=== PATIENT | male | born 1990 | race African-American/Black ===

== ENCOUNTER 2022-07-02 15:53 | Emergency (ER) | payer OTHER, SELFPAY ==
[2022-07-02] MEDS ORDERED: Acetaminophen 325 MG Suppository ONE (17:23)
[2022-07-02] MEDS ORDERED: Acetaminophen 325 MG TAB ONE (17:24)
== END 2022-07-02 19:10 | disposition home or self-care (01) ==
LOC: ERS 15:53
DX: M25.561 Pain in right knee (principal); M25.562 Pain in left knee; F17.210 Nicotine dependence, cigarettes, uncomplicated; W01.198A Fall on same level from slipping, tripping and stumbling with subsequent striking against other object, initial encounter

== ENCOUNTER 2022-10-07 11:30 | Emergency (ER) | payer SELFPAY | END 2022-10-07 14:21 | disposition home or self-care (01) | LOC: ERS 11:30 | DX: S90.31XA Contusion of right foot, initial encounter (principal); F17.210 Nicotine dependence, cigarettes, uncomplicated; W22.8XXA Striking against or struck by other objects, initial encounter ==

== ENCOUNTER 2023-03-04 14:53 | Inpatient (IN) | payer OTHER, MEDICAID ==
[~2023-03-04 14:53] MED LIST: Iopamidol-370 76% 500 ML MDV (1 ML CHARGE) ONE
[2023-03-04] MEDS ORDERED: EPINEPHrine 1 MG/10 ML Abboject SYRINGE ONE (15:00)
[2023-03-04] MEDS ORDERED: Insulin Regular 300 UNITS/3 ML VIAL SC PRN (15:15)
[2023-03-04] MEDS ORDERED: fentaNYL 50 mcg/mL 1 mL Vial ONE (15:15)
[2023-03-04] MEDS ORDERED: Dextrose 5% in Water 1,000 ML IV PRN (15:15)
[2023-03-04] MEDS ORDERED: Glucagon 1 MG/ML KIT IM PRN (15:15)
[2023-03-04] MEDS ORDERED: Dextrose 50% Abboject 50 ML SYRINGE SLOW IVP PRN (15:15)
[2023-03-04 15:17] LABS: #Basophils 0.1 thou/uL (0.0-0.2); #Eosinphils 0.1 thou/uL (0.0-0.7); #Monocytes 0.7 thou/uL (0.11-0.59); #Neutrophils 8.3 thou/uL (1.40-6.50); %Basophils 0.5 % (0.0-1.0); %Eosinophils 0.8 % (0.0-10.0); %Lymphocytes 8.7 % (21.0-51.0); %Monocytes 7.2 % (0.0-10.0); Hematocrit 33.2 % (42.0-52.0); Hemoglobin 11.1 g/dL (14.0-18.0); Mean Corpuscular HGB CONC 33.4 g/dL (32.0-36.0); Mean Corpuscular Hemoglobin 33.9 pg (27.0-31.0); Mean Corpuscular Volume 101.5 fl (78.0-98.0); Mean Platelet Volume 10.2 fL (7.4-10.4); RBC Distribution Width 14.8 % (11.5-14.5); Red Blood Cell (RBC) Count 3.27 mill/uL (4.70-6.10); White Blood Cell (WBC) Count 10.1 10x3/uL (4.8-10.8)
[2023-03-04] MEDS ORDERED: FENTANYL 500 MCG/10 ML VIAL 2,000 MCG in Sodium Chloride 0.9% 60 ML IV PRN (15:18)
[2023-03-04 15:28] LABS: Platelet Count 135 10x3/uL (130-400)
[2023-03-04] MEDS ORDERED: DISCONTINUE PREVIOUS NARCOTIC PAIN MEDICATIONS AND BENZODIAZEPINES FS SCH (15:30)
[2023-03-04] MEDS ORDERED: Fentanyl BOLUS 250 ML IVPB PRN ×2 (15:30)
[2023-03-04] MEDS ORDERED: Propofol BOLUS 1,000 MG/100 ML VIAL IV PRN (15:30)
[2023-03-04] MEDS ORDERED: Dexmedetomidine In 0.9 % NaCl 100 ML IVPB SCH (15:30)
[2023-03-04] MEDS ORDERED: Fentanyl CADD 100 ML IV SCH (15:30)
[2023-03-04] MEDS ORDERED: Morphine 2 MG/ML VIAL SLOW IVP PRN (15:30)
[2023-03-04] MEDS ORDERED: Dexmedetomidine 400 MCG, Admixture Fee 1 EACH in Sodium Chloride 0.9% 96 ML IVPB SCH (15:30)
[2023-03-04 15:38] LABS: Actual Bicarbonate (HCO3a) 17.5 mEq/L (22-28); Analyzer IN Cardio ER; Base Excess (BEa) -5.9 mEq/L (-2.0 to +3.0); CO2 Tension 28.1 mmHg (35.0-45.0); Calcium, Ionized (arterial) 1.02 mmol/L (1.12-1.30); Hematocrit-ABG 33 % (42.0-52.0); Hemoglobin (Hb) 11.2 g/dL (14.0-18.0); Potassium - ABG Lab 3.94 mmol/L (3.70-5.30); pH, Arterial 7.413 (7.35-7.45)
[2023-03-04 15:41] LABS: ALT (SGPT) 13 U/L (8-55); AST (SGOT) 28 U/L (5-34); Albumin 3.5 g/dL (3.5-5.0); Alkaline Phosphatase 61 U/L (40-110); Anion Gap 15 mmol/L (10-20); BUN (Urea Nitrogen) 8 mg/dL (8.9-20.6); Bilirubin, Total 0.5 mg/dL (0.2-1.2); Calc. Creatinine Clearance 0 mL/min (70-130); Calcium 7.1 mg/dL (7.8-10.44); Carbon Dioxide 19 mmol/L (22-29); Chloride 113 mmol/L (98-107); Estimated GFR 108; Globulin 1.6 g/dL (2.4-3.5); Glucose 101 mg/dL (70-105); Potassium 4.2 mmol/L (3.5-5.1); Protein, Total 5.1 g/dL (6.0-8.3); Sodium 143 mmol/L (136-145)
[2023-03-04] MEDS ORDERED: Propofol 1,000 MG/100 ML VIAL IV PRN (15:47)
[2023-03-04 15:54] LABS: Puncture Site RBA
[2023-03-04 16:10] LABS: Bacteria/HPF None Seen HPF (None Seen); Bilirubin Negative (Negative); Blood, Urine 2+ (Negative); CAUTI Indications for Culture Alt mental st,lethar; Clarity Clear (Clear); Glucose, Urine (Dipstick) Normal (Negative); Ketone, Urine Negative (Negative); Leukocyte Negative Leu/uL (Negative); Nitrite Negative (Negative); Protein, Urine (Dipstick) 30 mg/dL (Neg-Trace); RBC/HPF 0-3 HPF (0-3); Specific Gravity, Urine 1.033 (1.002-1.036); Squamous Epithelial 0-3 HPF (0-3); Urobilinogen Normal mg/dL (Less than 2); WBC/HPF 0-3 HPF (0-3); pH, Urine 6.5 (5.0-9.0)
[2023-03-04] MEDS ORDERED: Calcium Chloride 1 GM/10 ML Abboject SYRINGE IVP SCH (16:15)
[2023-03-04 16:18] LABS: Urine Culture Reflex No No
[2023-03-04] MEDS: Sodium Chloride 0.9% 1,000 ML IV SCH ×2 (17:08→21:49)
[2023-03-04 17:41] LABS: Amphetamine Not Detected (NotDetected); Barbiturates Screen Not Detected (NotDetected); Benzodiazepine Screen Not Detected (NotDetected); Cocaine Metabolite Screen Not Detected (NotDetected); Methadone Not Detected (NotDetected); Methamphetamine Not Detected (NotDetected); Opiate Screen Not Detected (NotDetected); Oxycodone Screen Not Detected (NotDetected); Phencyclidine (PCP) Not Detected (NotDetected); THC/Cannabinoid Screen Detected (NotDetected); Tricyclic Screen Not Detected (NotDetected)
[2023-03-04 18:13] LABS: INR-International Normal Ratio 1.1; Prothrombin Time 15.1 sec (12.0-14.7)
[2023-03-04 18:14] LABS: PTT 26.3 sec (22.9-36.1)
[2023-03-04] MEDS ORDERED: DOBUTamine 500 mg/250 ml 250 ML IVPB SCH (18:15)
[2023-03-04] MEDS ORDERED: Atropine Sulfate 1 mg/10 ml Syringe IVP SCH ×2 (18:15)
[2023-03-04 18:19] LABS: Lactic Acid 2.7 mmol/L (0.5-2.2)
[2023-03-04] MEDS ORDERED: NOREPINEPHRINE 8 MG/250 ML-D5W 250 ML IVPB SCH (18:30)
[2023-03-04 18:54] LABS: Troponin I Less than 0.010 ng/mL (< 0.028)
[2023-03-04] MEDS: Ipratropium/Albuterol 3 ML NEB NEB SCH (19:27)
[2023-03-04] MEDS: DOPamine 400 MG/D5W 250 ML 250 ML IVPB SCH (21:32)
[2023-03-04] MEDS: Famotidine/PF 20 mg/2ml Vial SLOW IVP SCH (21:54)
[2023-03-04] MEDS: Acetaminophen 650 MG Suppository PR PRN (22:22)
[2023-03-05] MEDS: Lorazepam 2 MG/ML VIAL SLOW IVP PRN ×7 (01:36→21:08)
[2023-03-05] MEDS: Acetaminophen 650 MG Suppository PR PRN (02:10)
[2023-03-05] MEDS: Sodium Chloride 0.9% 1,000 ML IV SCH ×2 (05:29→12:23)
[2023-03-05 05:56] LABS: #Basophils 0.1 thou/uL (0.0-0.2); #Eosinphils 0.1 thou/uL (0.0-0.7); #Monocytes 1.3 thou/uL (0.11-0.59); #Neutrophils 11.2 thou/uL (1.40-6.50); %Basophils 0.4 % (0.0-1.0); %Eosinophils 0.4 % (0.0-10.0); %Lymphocytes 8.3 % (21.0-51.0); %Monocytes 9.3 % (0.0-10.0); %Neutrophils 81.3 % (42.0-75.0); Hemoglobin 12.9 g/dL (14.0-18.0); Mean Corpuscular HGB CONC 33.9 g/dL (32.0-36.0); Mean Corpuscular Hemoglobin 33.9 pg (27.0-31.0); Mean Platelet Volume 10.3 fL (7.4-10.4); Platelet Count 142 10x3/uL (130-400); White Blood Cell (WBC) Count 13.7 10x3/uL (4.8-10.8)
[2023-03-05 06:29] LABS: ALT (SGPT) 17 U/L (8-55); AST (SGOT) 29 U/L (5-34); Albumin 4.4 g/dL (3.5-5.0); Alkaline Phosphatase 77 U/L (40-110); Anion Gap 13 mmol/L (10-20); BUN (Urea Nitrogen) 8 mg/dL (8.9-20.6); Bilirubin, Total 1.6 mg/dL (0.2-1.2); Calc. Creatinine Clearance 102 mL/min (70-130); Calcium 9.3 mg/dL (7.8-10.44); Carbon Dioxide 22 mmol/L (22-29); Chloride 109 mmol/L (98-107); Estimated GFR 119; Globulin 2.1 g/dL (2.4-3.5); Glucose 83 mg/dL (70-105); Magnesium 1.4 mg/dL (1.6-2.6); Potassium 3.8 mmol/L (3.5-5.1); Protein, Total 6.5 g/dL (6.0-8.3); Sodium 140 mmol/L (136-145)
[2023-03-05] MEDS: Ipratropium/Albuterol 3 ML NEB NEB SCH ×3 (07:05→19:40)
[2023-03-05 07:30] LABS: INR-International Normal Ratio 1.1; PTT 30.7 sec (22.9-36.1); Prothrombin Time 14.8 sec (12.0-14.7)
[2023-03-05] MEDS: Famotidine/PF 20 mg/2ml Vial SLOW IVP SCH ×2 (07:59→21:08)
[2023-03-05] MEDS ORDERED: Magnesium 2 GM/50 ML(in water) 2 GM in Premix 1 BAG IVPB SCH (08:15)
[2023-03-05] MEDS ORDERED: Rocuronium Bromide 50 MG/5 ML VIAL IVP SCH (09:15)
[2023-03-05] MEDS ORDERED: Polyethylene Glycol 3350 17 GM Packet PO PRN (10:55)
[2023-03-05] MEDS ORDERED: Senokot S 8.6-50 MG TAB PO PRN (10:55)
[2023-03-05] MEDS ORDERED: Bisacodyl 5 MG TAB PO PRN (10:56)
[2023-03-05] MEDS: Fentanyl CADD 100 ML IV SCH (11:15)
[2023-03-05] MEDS: Propofol 1,000 MG/100 ML VIAL IV PRN (15:31)
[2023-03-06] MEDS: Acetaminophen 325 MG TAB PER TUBE PRN ×4 (00:51→20:12)
[2023-03-06] MEDS: Lorazepam 2 MG/ML VIAL SLOW IVP PRN ×3 (00:59→06:21)
[2023-03-06] MEDS: Sodium Chloride 0.9% 1,000 ML IV SCH ×3 (01:19→20:11)
[2023-03-06] MEDS ORDERED: EPINEPHrine 1 MG/10 ML Abboject SYRINGE ONE ×2 (03:32→08:42)
[2023-03-06 03:49] LABS: #Basophils 0.1 thou/uL (0.0-0.2); #Eosinphils 0.1 thou/uL (0.0-0.7); #Monocytes 1.3 thou/uL (0.11-0.59); #Neutrophils 10.8 thou/uL (1.40-6.50); %Basophils 0.3 % (0.0-1.0); %Eosinophils 0.7 % (0.0-10.0); %Lymphocytes 15.4 % (21.0-51.0); %Monocytes 8.6 % (0.0-10.0); %Neutrophils 74.7 % (42.0-75.0); Hemoglobin 12.5 g/dL (14.0-18.0); Mean Corpuscular HGB CONC 33.8 g/dL (32.0-36.0); Mean Corpuscular Hemoglobin 33.9 pg (27.0-31.0); Mean Corpuscular Volume 100.3 fl (78.0-98.0); Mean Platelet Volume 10.1 fL (7.4-10.4); Platelet Count 126 10x3/uL (130-400); RBC Distribution Width 14.9 % (11.5-14.5); Red Blood Cell (RBC) Count 3.69 mill/uL (4.70-6.10); White Blood Cell (WBC) Count 14.5 10x3/uL (4.8-10.8)
[2023-03-06 03:53] LABS: Actual Bicarbonate (HCO3a) 21.1 mEq/L (22-28); Base Excess (BEa) -5.6 mEq/L (-2.0 to +3.0); Carboxyhemoglobin (COHb) 0.3 gm% (0.0-3.0); Hematocrit-ABG 39 % (42.0-52.0); Hemoglobin (Hb) 13.3 g/dL (14.0-18.0); O2 Tension (PaO2), arterial 362.9 mmHg (80.0-100.0); Potassium - ABG Lab 3.35 mmol/L (3.70-5.30)
[2023-03-06 04:13] LABS: Anion Gap 15 mmol/L (10-20); BUN (Urea Nitrogen) 9 mg/dL (8.9-20.6); Calc. Creatinine Clearance 106 mL/min (70-130); Calcium 8.2 mg/dL (7.8-10.44); Carbon Dioxide 20 mmol/L (22-29); Chloride 108 mmol/L (98-107); Estimated GFR 120; Glucose 100 mg/dL (70-105); Magnesium 2.3 mg/dL (1.6-2.6); Phosphorus 2.9 mg/dL (2.3-4.7); Potassium 3.8 mmol/L (3.5-5.1); Sodium 139 mmol/L (136-145)
[2023-03-06 04:20] LABS: Lactic Acid 1.5 mmol/L (0.5-2.2)
[2023-03-06 04:23] LABS: Troponin I Less than 0.010 ng/mL (< 0.028)
[2023-03-06] MEDS: Ipratropium/Albuterol 3 ML NEB NEB SCH ×3 (07:01→18:01)
[2023-03-06] MEDS: Fentanyl CADD 100 ML IV SCH (07:27)
[2023-03-06] MEDS ORDERED: Piperacillin/Tazobactam 3.375 GM in Sodium Chloride 0.9% 100 ML IVPB SCH (08:15)
[2023-03-06] MEDS: DOPamine 400 MG/D5W 250 ML 250 ML IVPB SCH (09:29)
[2023-03-06] MEDS: Famotidine/PF 20 mg/2ml Vial SLOW IVP SCH ×2 (09:29→20:12)
[2023-03-06] MEDS ORDERED: Iopamidol-370 76% 500 ML MDV (1 ML CHARGE) ONE (12:54)
[2023-03-06] MEDS: Piperacillin/Tazobactam 3.375 GM in Sodium Chloride 0.9% 100 ML IVPB SCH ×2 (13:02→20:12)
[2023-03-07] MEDS: Acetaminophen 325 MG TAB PER TUBE PRN ×5 (00:18→18:59)
[2023-03-07] MEDS: DOPamine 400 MG/D5W 250 ML 250 ML IVPB SCH ×2 (01:38→14:34)
[2023-03-07] MEDS: Fentanyl CADD 100 ML IV SCH ×2 (01:39→18:33)
[2023-03-07] MEDS: Piperacillin/Tazobactam 3.375 GM in Sodium Chloride 0.9% 100 ML IVPB SCH ×3 (04:30→21:05)
[2023-03-07] MEDS: Sodium Chloride 0.9% 1,000 ML IV SCH ×2 (05:18→14:36)
[2023-03-07 06:25] LABS: Hematocrit 37.9 % (42.0-52.0); Hemoglobin 12.9 g/dL (14.0-18.0); Mean Corpuscular Hemoglobin 33.6 pg (27.0-31.0); Mean Corpuscular Volume 98.7 fl (78.0-98.0); Mean Platelet Volume 10.9 fL (7.4-10.4); Platelet Count 122 10x3/uL (130-400); RBC Distribution Width 14.6 % (11.5-14.5); Red Blood Cell (RBC) Count 3.84 mill/uL (4.70-6.10); White Blood Cell (WBC) Count 11.8 10x3/uL (4.8-10.8)
[2023-03-07] MEDS: Ipratropium/Albuterol 3 ML NEB NEB SCH ×3 (06:32→18:14)
[2023-03-07 06:35] LABS: Delete Auto Diff?? YES; Manual Diff?? YES
[2023-03-07 07:01] LABS: Anisocytosis SLIGHT = 6-15 cells HPF (0-5); Band 30 % (5-11); Burr Cells SLIGHT = 2-5 cells HPF (0-1); CellaVision Operator ID lab.sh2; Large Platelets 4.9 % (0-5); Lymphocytes 10 % (21-51); Macrocytosis SLIGHT = 6-15 cells HPF (0-5); Monocytes 10 % (0-10); Neutrophil 51 % (42-75); Ovalocytes MODERATE= 6-15 cells HPF (0-1); Platelet Adequacy Comment Platelets Decreased; Polychromasia SLIGHT = 2-3 cells HPF (0-2); Smudge Cells 3.9 %; Total Cell Count 103; Vacuoles SLIGHT
[2023-03-07 07:17] LABS: Anion Gap 13 mmol/L (10-20); BUN (Urea Nitrogen) 9 mg/dL (8.9-20.6); Calc. Creatinine Clearance 120 mL/min (70-130); Calcium 8.3 mg/dL (7.8-10.44); Carbon Dioxide 22 mmol/L (22-29); Chloride 106 mmol/L (98-107); Estimated GFR 125; Glucose 100 mg/dL (70-105); Magnesium 1.8 mg/dL (1.6-2.6); Phosphorus 2.4 mg/dL (2.3-4.7); Potassium 4.1 mmol/L (3.5-5.1); Sodium 137 mmol/L (136-145)
[2023-03-07] MEDS: Propofol 1,000 MG/100 ML VIAL IV PRN ×2 (08:35→16:07)
[2023-03-07] MEDS: Lorazepam 2 MG/ML VIAL SLOW IVP PRN ×2 (11:32→14:44)
[2023-03-07] MEDS: Famotidine/PF 20 mg/2ml Vial SLOW IVP SCH ×2 (11:40→20:33)
[2023-03-08] MEDS: Propofol 1,000 MG/100 ML VIAL IV PRN ×3 (00:15→14:03)
[2023-03-08] MEDS: Acetaminophen 325 MG TAB PER TUBE PRN ×3 (00:15→18:32)
[2023-03-08] MEDS: Sodium Chloride 0.9% 1,000 ML IV SCH ×2 (02:55→11:13)
[2023-03-08] MEDS: Piperacillin/Tazobactam 3.375 GM in Sodium Chloride 0.9% 100 ML IVPB SCH ×3 (05:30→20:48)
[2023-03-08] MEDS: Ipratropium/Albuterol 3 ML NEB NEB SCH ×3 (06:42→17:57)
[2023-03-08] MEDS: DOPamine 400 MG/D5W 250 ML 250 ML IVPB SCH (07:42)
[2023-03-08] MEDS: Famotidine/PF 20 mg/2ml Vial SLOW IVP SCH ×2 (08:49→20:48)
[2023-03-08] MEDS: Fentanyl CADD 100 ML IV SCH (11:20)
[2023-03-08] MEDS: Lorazepam 2 MG/ML VIAL SLOW IVP PRN ×2 (14:03→20:03)
[2023-03-09] MEDS: Fentanyl CADD 100 ML IV SCH ×2 (01:26→13:57)
[2023-03-09] MEDS: Scopolamine 1 mg/72 hour Patch TD SCH (01:26)
[2023-03-09] MEDS: DOPamine 400 MG/D5W 250 ML 250 ML IVPB SCH ×2 (01:28→15:13)
[2023-03-09 04:00] LABS: #Basophils 0.1 thou/uL (0.0-0.2); #Eosinphils 0.5 thou/uL (0.0-0.7); #Monocytes 1.2 thou/uL (0.11-0.59); #Neutrophils 8.8 thou/uL (1.40-6.50); %Basophils 0.7 % (0.0-1.0); %Eosinophils 3.8 % (0.0-10.0); %Lymphocytes 12.5 % (21.0-51.0); %Monocytes 10.2 % (0.0-10.0); %Neutrophils 72.6 % (42.0-75.0); Hematocrit 36.2 % (42.0-52.0); Hemoglobin 12.7 g/dL (14.0-18.0); Mean Corpuscular HGB CONC 35.1 g/dL (32.0-36.0); Mean Platelet Volume 10.1 fL (7.4-10.4); Platelet Count 159 10x3/uL (130-400); RBC Distribution Width 14.6 % (11.5-14.5); Red Blood Cell (RBC) Count 3.85 mill/uL (4.70-6.10); White Blood Cell (WBC) Count 12.2 10x3/uL (4.8-10.8)
[2023-03-09] MEDS: Piperacillin/Tazobactam 3.375 GM in Sodium Chloride 0.9% 100 ML IVPB SCH ×3 (04:24→20:01)
[2023-03-09 04:29] LABS: Anion Gap 13 mmol/L (10-20); BUN (Urea Nitrogen) 12 mg/dL (8.9-20.6); Calc. Creatinine Clearance 117 mL/min (70-130); Calcium 8.7 mg/dL (7.8-10.44); Carbon Dioxide 19 mmol/L (22-29); Chloride 112 mmol/L (98-107); Estimated GFR 124; Glucose 106 mg/dL (70-105); Potassium 3.3 mmol/L (3.5-5.1); Sodium 141 mmol/L (136-145)
[2023-03-09] MEDS: Propofol 1,000 MG/100 ML VIAL IV PRN ×4 (06:15→15:13)
[2023-03-09] MEDS: Ipratropium/Albuterol 3 ML NEB NEB SCH ×3 (07:04→19:07)
[2023-03-09] MEDS: Sodium Chloride 0.9% 1,000 ML IV SCH ×3 (08:23→16:58)
[2023-03-09] MEDS: Famotidine/PF 20 mg/2ml Vial SLOW IVP SCH ×2 (08:24→20:01)
[2023-03-09 08:30] LABS: Magnesium 2.1 mg/dL (1.6-2.6)
[2023-03-09] MEDS ORDERED: Electrolyte Replacement Protocol FS PRN (08:30)
[2023-03-09 08:33] LABS: Actual Bicarbonate (HCO3v) 21.6 mEq/L (22-28); Base Excess -2.7 mEq/L (-2.0 to +3.0); Calcium, Ionized (venous) 1.08 mmol/L (1.16-1.32); Chloride (VBG) 108 mmol/L (98-106); Hematocrit-VBG 35 % (42.0-52.0); Hemoglobin (Hb) 11.9 g/dL (13.2-17.3); Potassium (VBG) 3.08 mmol/L (3.70-5.30); Sodium 142 mmol/L (133-146); pH (venous) 7.398 (7.32-7.43)
[2023-03-09] MEDS: Potassium Chloride 20 MEQ in Premix 1 BAG IVPB SCH ×2 (09:05→09:49)
[2023-03-09] MEDS: Lorazepam 2 MG/ML VIAL SLOW IVP PRN ×3 (09:49→20:01)
[2023-03-09] MEDS ORDERED: Furosemide 40 MG/4 ML VIAL SLOW IVP SCH (11:45)
[2023-03-09] MEDS: Acetaminophen 650 MG Suppository PR PRN (15:06)
[2023-03-09] MEDS ORDERED: Sodium Chloride 0.9% 1,000 ML IV SCH (17:21)
[2023-03-09] MEDS ORDERED: Potassium Chloride 20 MEQ in Premix 1 BAG IVPB SCH (17:30)
[2023-03-09] MEDS: Acetaminophen 325 MG TAB PER TUBE PRN (19:41)
[2023-03-10] MEDS: Lorazepam 2 MG/ML VIAL SLOW IVP PRN ×4 (00:02→22:43)
[2023-03-10] MEDS: Fentanyl CADD 100 ML IV SCH ×2 (03:14→18:32)
[2023-03-10 04:46] LABS: Anion Gap 13 mmol/L (10-20); BUN (Urea Nitrogen) 13 mg/dL (8.9-20.6); Calc. Creatinine Clearance 115 mL/min (70-130); Calcium 8.7 mg/dL (7.8-10.44); Carbon Dioxide 21 mmol/L (22-29); Chloride 110 mmol/L (98-107); Estimated GFR 121; Glucose 107 mg/dL (70-105); Magnesium 2.1 mg/dL (1.6-2.6); Phosphorus 2.6 mg/dL (2.3-4.7); Potassium 3.3 mmol/L (3.5-5.1); Sodium 141 mmol/L (136-145)
[2023-03-10] MEDS: Piperacillin/Tazobactam 3.375 GM in Sodium Chloride 0.9% 100 ML IVPB SCH ×3 (05:39→21:25)
[2023-03-10] MEDS: Propofol 1,000 MG/100 ML VIAL IV PRN ×2 (05:39→18:40)
[2023-03-10] MEDS ORDERED: fentaNYL 50 mcg/mL 1 mL Vial SLOW IVP SCH (07:00)
[2023-03-10] MEDS ORDERED: Vecuronium 10 MG VIAL IVP SCH (07:00)
[2023-03-10] MEDS ORDERED: Lidocaine 1%/Epinephrine 1:100K 10 ML VIAL IJ SCH (07:00)
[2023-03-10] MEDS ORDERED: CEFAZOLIN 1 GM VIAL SLOW IVP SCH (07:00)
[2023-03-10] MEDS ORDERED: Lorazepam 2 MG/ML VIAL SLOW IVP SCH (07:00)
[2023-03-10] MEDS ORDERED: CEFAZOLIN 2 GM in Sodium Chloride 0.9% 100 ML IVPB SCH (07:00)
[2023-03-10] MEDS ORDERED: Midazolam HCl 2 mg/2 ml Vial SLOW IVP SCH (07:15)
[2023-03-10] MEDS: Ipratropium/Albuterol 3 ML NEB NEB SCH ×3 (07:22→19:16)
[2023-03-10] MEDS ORDERED: Lidocaine 1% w/Epinephrine 1:100K 20 ML VIAL ONE (07:28)
[2023-03-10] MEDS: Potassium Chloride 20 MEQ in Premix 1 BAG IVPB SCH ×2 (10:07→12:46)
[2023-03-10] MEDS: Famotidine/PF 20 mg/2ml Vial SLOW IVP SCH ×2 (10:09→21:26)
[2023-03-10] MEDS: Acetaminophen 325 MG TAB PER TUBE PRN (13:44)
[2023-03-10 17:12] LABS: Potassium 4.2 mmol/L (3.5-5.1)
[2023-03-10] MEDS: DOPamine 400 MG/D5W 250 ML 250 ML IVPB SCH (17:52)
[2023-03-10] MEDS ORDERED: Fentanyl CADD 100 ML ONE (18:28)
[2023-03-10] MEDS ORDERED: Propofol 1,000 MG/100 ML VIAL IV ONE (18:39)
[2023-03-10] MEDS ORDERED: Fentanyl BOLUS 250 ML IVPB PRN (19:45)
[2023-03-10] MEDS ORDERED: Ventilator Sedation Protocol 1 EACH FS SCH (19:45)
[2023-03-10] MEDS ORDERED: Propofol BOLUS 1,000 MG/100 ML VIAL IV PRN (19:45)
[2023-03-10] MEDS ORDERED: Propofol 1,000 MG/100 ML VIAL IV PRN (19:45)
[2023-03-10] MEDS ORDERED: DISCONTINUE PREVIOUS NARCOTIC PAIN MEDICATIONS AND BENZODIAZEPINES FS SCH (19:45)
[2023-03-11 05:11] LABS: #Basophils 0.1 thou/uL (0.0-0.2); #Eosinphils 0.4 thou/uL (0.0-0.7); #Monocytes 1.6 thou/uL (0.11-0.59); #Neutrophils 9.3 thou/uL (1.40-6.50); %Basophils 0.4 % (0.0-1.0); %Eosinophils 3.4 % (0.0-10.0); %Lymphocytes 9.1 % (21.0-51.0); %Monocytes 12.5 % (0.0-10.0); %Neutrophils 74.1 % (42.0-75.0); Hematocrit 32.5 % (42.0-52.0); Hemoglobin 11.1 g/dL (14.0-18.0); Mean Corpuscular HGB CONC 34.2 g/dL (32.0-36.0); Mean Corpuscular Hemoglobin 33.3 pg (27.0-31.0); Mean Corpuscular Volume 97.6 fl (78.0-98.0); Mean Platelet Volume 10.4 fL (7.4-10.4); Platelet Count 212 10x3/uL (130-400); RBC Distribution Width 14.9 % (11.5-14.5); Red Blood Cell (RBC) Count 3.33 mill/uL (4.70-6.10); White Blood Cell (WBC) Count 12.6 10x3/uL (4.8-10.8)
[2023-03-11 05:32] LABS: Anion Gap 15 mmol/L (10-20); BUN (Urea Nitrogen) 13 mg/dL (8.9-20.6); Calc. Creatinine Clearance 111 mL/min (70-130); Calcium 9.3 mg/dL (7.8-10.44); Carbon Dioxide 24 mmol/L (22-29); Chloride 104 mmol/L (98-107); Estimated GFR 122; Glucose 101 mg/dL (70-105); Potassium 4.1 mmol/L (3.5-5.1); Sodium 139 mmol/L (136-145)
[2023-03-11] MEDS: Piperacillin/Tazobactam 3.375 GM in Sodium Chloride 0.9% 100 ML IVPB SCH ×3 (05:50→21:11)
[2023-03-11] MEDS: Ipratropium/Albuterol 3 ML NEB NEB SCH ×3 (07:19→18:24)
[2023-03-11 07:46] LABS: Actual Bicarbonate (HCO3a) 21.4 mEq/L (22-28); Base Excess (BEa) -3.2 mEq/L (-2.0 to +3.0); CO2 Tension 36.8 mmHg (35.0-45.0); Calcium, Ionized (arterial) 1.18 mmol/L (1.12-1.30); Carboxyhemoglobin (COHb) 0.3 gm% (0.0-3.0); Hematocrit-ABG 36 % (42.0-52.0); Hemoglobin (Hb) 12.1 g/dL (14.0-18.0); Potassium - ABG Lab 4.02 mmol/L (3.70-5.30); pH, Arterial 7.383 (7.35-7.45)
[2023-03-11] MEDS ORDERED: Glycopyrrolate 0.4 MG/ 2 ML VIAL SLOW IVP PRN (07:59)
[2023-03-11 08:03] LABS: Puncture Site LRA
[2023-03-11] MEDS: Morphine 2 MG/ML VIAL SLOW IVP PRN ×4 (09:12→22:35)
[2023-03-11] MEDS: Famotidine/PF 20 mg/2ml Vial SLOW IVP SCH ×2 (09:12→21:11)
[2023-03-11] MEDS: Scopolamine 1 mg/72 hour Patch TD SCH (09:14)
[2023-03-11] MEDS ORDERED: GLYCOPYRROLATE/PF 0.2 MG/ML VIAL SLOW IVP PRN (09:50)
[2023-03-11] MEDS: Fentanyl CADD 100 ML IV SCH (14:23)
[2023-03-11] MEDS: Lorazepam 2 MG/ML VIAL SLOW IVP PRN (15:38)
[2023-03-12] MEDS: Morphine 2 MG/ML VIAL SLOW IVP PRN ×6 (01:32→22:45)
[2023-03-12] MEDS: Fentanyl CADD 100 ML IV SCH ×2 (02:12→15:34)
[2023-03-12] MEDS: Piperacillin/Tazobactam 3.375 GM in Sodium Chloride 0.9% 100 ML IVPB SCH ×3 (04:45→20:47)
[2023-03-12 06:30] LABS: #Basophils 0.1 thou/uL (0.0-0.2); #Eosinphils 0.3 thou/uL (0.0-0.7); #Monocytes 2.6 thou/uL (0.11-0.59); #Neutrophils 10.7 thou/uL (1.40-6.50); %Basophils 0.5 % (0.0-1.0); %Eosinophils 1.6 % (0.0-10.0); %Lymphocytes 10.4 % (21.0-51.0); %Monocytes 16.9 % (0.0-10.0); %Neutrophils 69.3 % (42.0-75.0); Hematocrit 28.9 % (42.0-52.0); Mean Corpuscular HGB CONC 34.6 g/dL (32.0-36.0); Mean Corpuscular Hemoglobin 33.7 pg (27.0-31.0); Mean Corpuscular Volume 97.3 fl (78.0-98.0); Mean Platelet Volume 9.9 fL (7.4-10.4); Platelet Count 246 10x3/uL (130-400); RBC Distribution Width 14.9 % (11.5-14.5); Red Blood Cell (RBC) Count 2.97 mill/uL (4.70-6.10); White Blood Cell (WBC) Count 15.4 10x3/uL (4.8-10.8)
[2023-03-12 06:56] LABS: Anion Gap 14 mmol/L (10-20); BUN (Urea Nitrogen) 24 mg/dL (8.9-20.6); Calc. Creatinine Clearance 93 mL/min (70-130); Calcium 8.8 mg/dL (7.8-10.44); Carbon Dioxide 24 mmol/L (22-29); Chloride 106 mmol/L (98-107); Estimated GFR 117; Glucose 120 mg/dL (70-105); Potassium 3.6 mmol/L (3.5-5.1); Sodium 140 mmol/L (136-145)
[2023-03-12] MEDS: Ipratropium/Albuterol 3 ML NEB NEB SCH ×3 (07:08→18:26)
[2023-03-12 07:17] LABS: Actual Bicarbonate (HCO3a) 21.8 mEq/L (22-28); Base Excess (BEa) -1.3 mEq/L (-2.0 to +3.0); Calcium, Ionized (arterial) 1.17 mmol/L (1.12-1.30); Carboxyhemoglobin (COHb) 0.3 gm% (0.0-3.0); Hematocrit-ABG 31 % (42.0-52.0); Hemoglobin (Hb) 10.7 g/dL (14.0-18.0); O2 Tension (PaO2), arterial 110.5 mmHg (80.0-100.0); Potassium - ABG Lab 3.57 mmol/L (3.70-5.30); Puncture Site RRA; pH, Arterial 7.464 (7.35-7.45)
[2023-03-12] MEDS: Famotidine/PF 20 mg/2ml Vial SLOW IVP SCH ×2 (09:42→20:47)
[2023-03-12] MEDS ORDERED: Polyethylene Glycol 3350 17 GM Packet PO SCH (10:45)
[2023-03-12] MEDS ORDERED: Senokot S 8.6-50 MG TAB PO SCH (10:45)
[2023-03-12] MEDS: DOPamine 400 MG/D5W 250 ML 250 ML IVPB SCH (13:00)
[2023-03-12] MEDS: Senokot S 8.6-50 MG TAB PO SCH (20:48)
[2023-03-12] MEDS: Lorazepam 2 MG/ML VIAL SLOW IVP PRN (23:47)
[2023-03-13] MEDS: Piperacillin/Tazobactam 3.375 GM in Sodium Chloride 0.9% 100 ML IVPB SCH ×3 (04:14→21:25)
[2023-03-13 04:24] LABS: #Basophils 0.1 thou/uL (0.0-0.2); #Eosinphils 0.5 thou/uL (0.0-0.7); #Monocytes 2.1 thou/uL (0.11-0.59); %Basophils 0.5 % (0.0-1.0); %Eosinophils 2.8 % (0.0-10.0); %Lymphocytes 12.4 % (21.0-51.0); %Monocytes 12.6 % (0.0-10.0); %Neutrophils 70.9 % (42.0-75.0); Hematocrit 21.7 % (42.0-52.0); Hemoglobin 7.5 g/dL (14.0-18.0); Mean Corpuscular HGB CONC 34.6 g/dL (32.0-36.0); Mean Corpuscular Hemoglobin 33.9 pg (27.0-31.0); Mean Corpuscular Volume 98.2 fl (78.0-98.0); Mean Platelet Volume 9.7 fL (7.4-10.4); Platelet Count 314 10x3/uL (130-400); Red Blood Cell (RBC) Count 2.21 mill/uL (4.70-6.10); White Blood Cell (WBC) Count 16.9 10x3/uL (4.8-10.8)
[2023-03-13] MEDS: Fentanyl CADD 100 ML IV SCH ×2 (04:26→17:53)
[2023-03-13 05:02] LABS: Anion Gap 12 mmol/L (10-20); BUN (Urea Nitrogen) 17 mg/dL (8.9-20.6); Calc. Creatinine Clearance 114 mL/min (70-130); Calcium 8.8 mg/dL (7.8-10.44); Carbon Dioxide 27 mmol/L (22-29); Chloride 105 mmol/L (98-107); Estimated GFR 125; Glucose 111 mg/dL (70-105); Potassium 3.7 mmol/L (3.5-5.1); Sodium 140 mmol/L (136-145)
[2023-03-13] MEDS: Ipratropium/Albuterol 3 ML NEB NEB SCH ×3 (07:37→19:20)
[2023-03-13] MEDS: Famotidine/PF 20 mg/2ml Vial SLOW IVP SCH (09:19)
[2023-03-13] MEDS: Senokot S 8.6-50 MG TAB PO SCH ×2 (09:20→21:30)
[2023-03-13] MEDS: Bisacodyl 5 MG TAB PO SCH (09:20)
[2023-03-13] MEDS: Polyethylene Glycol 3350 17 GM Packet PO SCH (09:20)
[2023-03-13] MEDS ORDERED: QUEtiapine 25 MG TAB PO SCH (11:15)
[2023-03-13] MEDS ORDERED: QUEtiapine 25 MG TAB PER TUBE SCH (11:30)
[2023-03-13 15:15] LABS: Fungus Stain Final report (.)
[2023-03-13] MEDS: DOPamine 400 MG/D5W 250 ML 250 ML IVPB SCH (18:17)
[2023-03-13] MEDS ORDERED: Acetaminophen 650 MG/20.3 ML UDCUP PER TUBE SCH (18:30)
[2023-03-13] MEDS: Gabapentin 300 MG CAP PER TUBE SCH (21:27)
[2023-03-13] MEDS: QUEtiapine 25 MG TAB PER TUBE SCH (21:28)
[2023-03-13] MEDS: Famotidine 20 MG TAB PER TUBE SCH (21:29)
[2023-03-14] MEDS: Lorazepam 2 MG/ML VIAL SLOW IVP PRN ×3 (02:17→23:49)
[2023-03-14] MEDS: Acetaminophen 650 MG/20.3 ML UDCUP PER TUBE SCH ×4 (02:18→21:51)
[2023-03-14 04:41] LABS: #Basophils 0.1 thou/uL (0.0-0.2); #Eosinphils 0.2 thou/uL (0.0-0.7); #Monocytes 1.3 thou/uL (0.11-0.59); #Neutrophils 14.7 thou/uL (1.40-6.50); %Basophils 0.3 % (0.0-1.0); %Eosinophils 1.4 % (0.0-10.0); %Lymphocytes 6.8 % (21.0-51.0); %Monocytes 7.3 % (0.0-10.0); %Neutrophils 83.7 % (42.0-75.0); Hematocrit 30.3 % (42.0-52.0); Hemoglobin 10.4 g/dL (14.0-18.0); Mean Corpuscular HGB CONC 34.3 g/dL (32.0-36.0); Mean Corpuscular Hemoglobin 33.2 pg (27.0-31.0); Mean Corpuscular Volume 96.8 fl (78.0-98.0); Mean Platelet Volume 9.4 fL (7.4-10.4); Platelet Count 349 10x3/uL (130-400); RBC Distribution Width 14.3 % (11.5-14.5); Red Blood Cell (RBC) Count 3.13 mill/uL (4.70-6.10); White Blood Cell (WBC) Count 17.5 10x3/uL (4.8-10.8)
[2023-03-14] MEDS: Morphine 2 MG/ML VIAL SLOW IVP PRN ×3 (04:55→21:57)
[2023-03-14 05:04] LABS: Anion Gap 15 mmol/L (10-20); BUN (Urea Nitrogen) 21 mg/dL (8.9-20.6); Calc. Creatinine Clearance 102 mL/min (70-130); Calcium 8.9 mg/dL (7.8-10.44); Carbon Dioxide 25 mmol/L (22-29); Chloride 101 mmol/L (98-107); Estimated GFR 120; Glucose 133 mg/dL (70-105); Potassium 4.1 mmol/L (3.5-5.1); Sodium 137 mmol/L (136-145)
[2023-03-14] MEDS: Piperacillin/Tazobactam 3.375 GM in Sodium Chloride 0.9% 100 ML IVPB SCH ×3 (05:24→21:48)
[2023-03-14] MEDS: Fentanyl CADD 100 ML IV SCH (06:45)
[2023-03-14] MEDS: Ipratropium/Albuterol 3 ML NEB NEB SCH ×3 (07:41→18:53)
[2023-03-14] MEDS: Famotidine 20 MG TAB PER TUBE SCH ×2 (09:38→21:51)
[2023-03-14] MEDS: QUEtiapine 25 MG TAB PER TUBE SCH ×2 (09:38→21:51)
[2023-03-14] MEDS: Gabapentin 300 MG CAP PER TUBE SCH ×3 (09:38→21:51)
[2023-03-14] MEDS: Polyethylene Glycol 3350 17 GM Packet PO SCH (09:42)
[2023-03-14] MEDS: Bisacodyl 5 MG TAB PO SCH (09:42)
[2023-03-14] MEDS: Senokot S 8.6-50 MG TAB PO SCH ×2 (09:43→21:52)
[2023-03-14] MEDS: DOPamine 400 MG/D5W 250 ML 250 ML IVPB SCH (11:29)
[2023-03-14] MEDS: Scopolamine 1 mg/72 hour Patch TD SCH (23:50)
[2023-03-15] MEDS: DOPamine 400 MG/D5W 250 ML 250 ML IVPB SCH ×2 (01:51→20:20)
[2023-03-15] MEDS: Fentanyl CADD 100 ML IV SCH (02:36)
[2023-03-15] MEDS: Acetaminophen 650 MG/20.3 ML UDCUP PER TUBE SCH ×4 (02:41→20:21)
[2023-03-15] MEDS: Lorazepam 2 MG/ML VIAL SLOW IVP PRN ×2 (02:41→22:25)
[2023-03-15 03:29] LABS: #Basophils 0.1 thou/uL (0.0-0.2); #Eosinphils 0.3 thou/uL (0.0-0.7); #Monocytes 1.2 thou/uL (0.11-0.59); #Neutrophils 12.8 thou/uL (1.40-6.50); %Basophils 0.4 % (0.0-1.0); %Eosinophils 1.8 % (0.0-10.0); %Lymphocytes 9.8 % (21.0-51.0); %Monocytes 7.8 % (0.0-10.0); %Neutrophils 79.6 % (42.0-75.0); Hemoglobin 10.5 g/dL (14.0-18.0); Mean Corpuscular Hemoglobin 33.7 pg (27.0-31.0); Mean Corpuscular Volume 96.2 fl (78.0-98.0); Mean Platelet Volume 9.3 fL (7.4-10.4); Platelet Count 400 10x3/uL (130-400); RBC Distribution Width 14.2 % (11.5-14.5); Red Blood Cell (RBC) Count 3.12 mill/uL (4.70-6.10)
[2023-03-15 03:53] LABS: Anion Gap 13 mmol/L (10-20); BUN (Urea Nitrogen) 15 mg/dL (8.9-20.6); Calc. Creatinine Clearance 110 mL/min (70-130); Calcium 9.4 mg/dL (7.8-10.44); Carbon Dioxide 26 mmol/L (22-29); Chloride 102 mmol/L (98-107); Estimated GFR 125; Glucose 123 mg/dL (70-105); Potassium 3.7 mmol/L (3.5-5.1); Sodium 137 mmol/L (136-145)
[2023-03-15] MEDS: Piperacillin/Tazobactam 3.375 GM in Sodium Chloride 0.9% 100 ML IVPB SCH ×3 (04:36→20:20)
[2023-03-15] MEDS: Ipratropium/Albuterol 3 ML NEB NEB SCH ×3 (07:33→18:41)
[2023-03-15] MEDS: Bisacodyl 5 MG TAB PO SCH (08:46)
[2023-03-15] MEDS: QUEtiapine 25 MG TAB PER TUBE SCH ×2 (08:47→20:19)
[2023-03-15] MEDS: Gabapentin 300 MG CAP PER TUBE SCH ×3 (08:47→20:19)
[2023-03-15] MEDS: Famotidine 20 MG TAB PER TUBE SCH ×2 (08:47→20:19)
[2023-03-15] MEDS: Polyethylene Glycol 3350 17 GM Packet PO SCH (08:47)
[2023-03-15] MEDS: Senokot S 8.6-50 MG TAB PO SCH ×2 (08:47→20:19)
[2023-03-15] MEDS ORDERED: Furosemide 20 MG/2 ML VIAL SLOW IVP SCH (10:00)
[2023-03-15] MEDS: Ibuprofen 100 MG/5 ML UDCUP PER TUBE SCH ×2 (10:28→17:50)
[2023-03-15] MEDS: Morphine 2 MG/ML VIAL SLOW IVP PRN ×2 (13:45→17:49)
[2023-03-16] MEDS: Acetaminophen 650 MG/20.3 ML UDCUP PER TUBE SCH ×4 (02:47→21:43)
[2023-03-16] MEDS: Ibuprofen 100 MG/5 ML UDCUP PER TUBE SCH ×3 (02:47→17:39)
[2023-03-16 04:46] LABS: #Basophils 0.1 thou/uL (0.0-0.2); #Eosinphils 0.4 thou/uL (0.0-0.7); #Neutrophils 13.1 thou/uL (1.40-6.50); %Basophils 0.4 % (0.0-1.0); %Eosinophils 2.4 % (0.0-10.0); %Lymphocytes 7.4 % (21.0-51.0); %Monocytes 6.5 % (0.0-10.0); %Neutrophils 82.6 % (42.0-75.0); Hematocrit 31.5 % (42.0-52.0); Hemoglobin 10.9 g/dL (14.0-18.0); Mean Corpuscular HGB CONC 34.6 g/dL (32.0-36.0); Mean Corpuscular Hemoglobin 33.3 pg (27.0-31.0); Mean Corpuscular Volume 96.3 fl (78.0-98.0); Mean Platelet Volume 9.2 fL (7.4-10.4); Platelet Count 475 10x3/uL (130-400); Red Blood Cell (RBC) Count 3.27 mill/uL (4.70-6.10); White Blood Cell (WBC) Count 15.8 10x3/uL (4.8-10.8)
[2023-03-16] MEDS: Piperacillin/Tazobactam 3.375 GM in Sodium Chloride 0.9% 100 ML IVPB SCH ×3 (05:33→21:05)
[2023-03-16 06:39] LABS: Anion Gap 13 mmol/L (10-20); BUN (Urea Nitrogen) 15 mg/dL (8.9-20.6); Calc. Creatinine Clearance 97 mL/min (70-130); Calcium 9.5 mg/dL (7.8-10.44); Carbon Dioxide 27 mmol/L (22-29); Chloride 102 mmol/L (98-107); Estimated GFR 121; Glucose 129 mg/dL (70-105); Potassium 3.6 mmol/L (3.5-5.1); Sodium 138 mmol/L (136-145)
[2023-03-16] MEDS: Ipratropium/Albuterol 3 ML NEB NEB SCH ×3 (06:42→18:30)
[2023-03-16] MEDS: Gabapentin 300 MG CAP PER TUBE SCH ×3 (08:55→21:06)
[2023-03-16] MEDS: Famotidine 20 MG TAB PER TUBE SCH ×2 (08:55→21:06)
[2023-03-16] MEDS: QUEtiapine 25 MG TAB PER TUBE SCH ×2 (10:40→21:05)
[2023-03-16] MEDS: Bisacodyl 5 MG TAB PO SCH (10:41)
[2023-03-16] MEDS: Polyethylene Glycol 3350 17 GM Packet PO SCH (10:41)
[2023-03-16] MEDS: DOPamine 400 MG/D5W 250 ML 250 ML IVPB SCH (12:32)
[2023-03-16] MEDS: Lorazepam 2 MG/ML VIAL SLOW IVP PRN ×2 (13:03→16:59)
[2023-03-16] MEDS: Senokot S 8.6-50 MG TAB PO SCH ×2 (14:36→22:37)
[2023-03-16] MEDS: Fentanyl CADD 100 ML IV SCH (15:14)
[2023-03-17] MEDS: Lorazepam 2 MG/ML VIAL SLOW IVP PRN ×3 (00:50→14:07)
[2023-03-17] MEDS: Ibuprofen 100 MG/5 ML UDCUP PER TUBE SCH ×3 (02:15→18:00)
[2023-03-17] MEDS: Acetaminophen 650 MG/20.3 ML UDCUP PER TUBE SCH ×4 (03:13→20:36)
[2023-03-17] MEDS: Dexmedetomidine 400 MCG, Admixture Fee 1 EACH in Sodium Chloride 0.9% 96 ML IVPB SCH ×2 (04:13→20:38)
[2023-03-17] MEDS: Piperacillin/Tazobactam 3.375 GM in Sodium Chloride 0.9% 100 ML IVPB SCH ×3 (04:42→20:37)
[2023-03-17] MEDS: DOPamine 400 MG/D5W 250 ML 250 ML IVPB SCH ×2 (04:48→20:39)
[2023-03-17 05:23] LABS: #Basophils 0.1 thou/uL (0.0-0.2); #Eosinphils 0.3 thou/uL (0.0-0.7); #Monocytes 0.8 thou/uL (0.11-0.59); #Neutrophils 10.5 thou/uL (1.40-6.50); %Basophils 0.7 % (0.0-1.0); %Eosinophils 2.4 % (0.0-10.0); %Lymphocytes 10.3 % (21.0-51.0); %Monocytes 6.1 % (0.0-10.0); Hematocrit 32.1 % (42.0-52.0); Hemoglobin 10.8 g/dL (14.0-18.0); Mean Corpuscular HGB CONC 33.6 g/dL (32.0-36.0); Mean Corpuscular Hemoglobin 32.6 pg (27.0-31.0); Mean Platelet Volume 9.2 fL (7.4-10.4); Platelet Count 473 10x3/uL (130-400); RBC Distribution Width 14.1 % (11.5-14.5); Red Blood Cell (RBC) Count 3.31 mill/uL (4.70-6.10); White Blood Cell (WBC) Count 13.1 10x3/uL (4.8-10.8)
[2023-03-17 06:15] LABS: ALT (SGPT) 101 U/L (8-55); AST (SGOT) 53 U/L (5-34); Albumin 3.3 g/dL (3.5-5.0); Alkaline Phosphatase 134 U/L (40-110); Anion Gap 14 mmol/L (10-20); BUN (Urea Nitrogen) 18 mg/dL (8.9-20.6); Bilirubin, Total 0.8 mg/dL (0.2-1.2); Calc. Creatinine Clearance 0 mL/min (70-130); Calcium 9.5 mg/dL (7.8-10.44); Carbon Dioxide 25 mmol/L (22-29); Chloride 102 mmol/L (98-107); Estimated GFR 122; Glucose 106 mg/dL (70-105); Potassium 4.2 mmol/L (3.5-5.1); Protein, Total 7.3 g/dL (6.0-8.3); Sodium 137 mmol/L (136-145)
[2023-03-17] MEDS: Ipratropium/Albuterol 3 ML NEB NEB SCH ×3 (08:08→18:33)
[2023-03-17] MEDS: QUEtiapine 25 MG TAB PER TUBE SCH ×2 (08:48→20:37)
[2023-03-17] MEDS: Gabapentin 300 MG CAP PER TUBE SCH ×3 (08:48→20:37)
[2023-03-17] MEDS: Senokot S 8.6-50 MG TAB PO SCH ×2 (08:48→20:38)
[2023-03-17] MEDS: Famotidine 20 MG TAB PER TUBE SCH ×2 (08:48→20:37)
[2023-03-17] MEDS: Polyethylene Glycol 3350 17 GM Packet PO SCH (08:50)
[2023-03-17] MEDS: Bisacodyl 5 MG TAB PO SCH (08:50)
[2023-03-17] MEDS: Fentanyl CADD 100 ML IV SCH (10:41)
[2023-03-17] MEDS: Scopolamine 1 mg/72 hour Patch TD SCH (20:38)
[2023-03-18] MEDS: Ibuprofen 100 MG/5 ML UDCUP PER TUBE SCH ×3 (03:33→18:06)
[2023-03-18] MEDS: Acetaminophen 650 MG/20.3 ML UDCUP PER TUBE SCH ×4 (03:34→20:35)
[2023-03-18 04:05] LABS: #Basophils 0.1 thou/uL (0.0-0.2); #Eosinphils 0.4 thou/uL (0.0-0.7); #Monocytes 0.9 thou/uL (0.11-0.59); #Neutrophils 9.5 thou/uL (1.40-6.50); %Basophils 0.9 % (0.0-1.0); %Eosinophils 2.9 % (0.0-10.0); %Lymphocytes 11.6 % (21.0-51.0); %Monocytes 7.4 % (0.0-10.0); %Neutrophils 76.8 % (42.0-75.0); Hematocrit 31.4 % (42.0-52.0); Hemoglobin 10.6 g/dL (14.0-18.0); Mean Corpuscular HGB CONC 33.8 g/dL (32.0-36.0); Mean Corpuscular Hemoglobin 32.6 pg (27.0-31.0); Mean Corpuscular Volume 96.6 fl (78.0-98.0); Platelet Count 532 10x3/uL (130-400); Red Blood Cell (RBC) Count 3.25 mill/uL (4.70-6.10); White Blood Cell (WBC) Count 12.4 10x3/uL (4.8-10.8)
[2023-03-18] MEDS: Piperacillin/Tazobactam 3.375 GM in Sodium Chloride 0.9% 100 ML IVPB SCH ×2 (05:19→13:46)
[2023-03-18] MEDS: Ipratropium/Albuterol 3 ML NEB NEB SCH ×3 (06:39→18:23)
[2023-03-18 07:53] LABS: ALT (SGPT) 84 U/L (8-55); AST (SGOT) 53 U/L (5-34); Albumin 3.2 g/dL (3.5-5.0); Alkaline Phosphatase 126 U/L (40-110); Anion Gap 14 mmol/L (10-20); BUN (Urea Nitrogen) 16 mg/dL (8.9-20.6); Bilirubin, Total 0.7 mg/dL (0.2-1.2); Calc. Creatinine Clearance 102 mL/min (70-130); Calcium 9.3 mg/dL (7.8-10.44); Carbon Dioxide 24 mmol/L (22-29); Chloride 101 mmol/L (98-107); Estimated GFR 124; Glucose 110 mg/dL (70-105); Potassium 3.7 mmol/L (3.5-5.1); Protein, Total 7.2 g/dL (6.0-8.3); Sodium 135 mmol/L (136-145)
[2023-03-18] MEDS: Gabapentin 300 MG CAP PER TUBE SCH ×3 (08:33→20:36)
[2023-03-18] MEDS: Bisacodyl 5 MG TAB PO SCH (08:33)
[2023-03-18] MEDS: QUEtiapine 25 MG TAB PER TUBE SCH (08:34)
[2023-03-18] MEDS: Famotidine 20 MG TAB PER TUBE SCH ×2 (08:34→20:36)
[2023-03-18] MEDS: Polyethylene Glycol 3350 17 GM Packet PO SCH (08:34)
[2023-03-18] MEDS: Senokot S 8.6-50 MG TAB PO SCH ×2 (08:35→20:36)
[2023-03-18] MEDS: DOPamine 400 MG/D5W 250 ML 250 ML IVPB SCH (16:16)
[2023-03-18] MEDS: Morphine 2 MG/ML VIAL SLOW IVP PRN (17:54)
[2023-03-18] MEDS: Lorazepam 2 MG/ML VIAL SLOW IVP PRN (17:54)
[2023-03-18] MEDS ORDERED: carBAMazepine 200 MG TAB PO SCH (19:00)
[2023-03-18] MEDS: Fentanyl CADD 100 ML IV SCH (19:18)
[2023-03-18] MEDS: cloNIDine 0.1 MG TAB PO SCH (20:35)
[2023-03-18] MEDS: Dexmedetomidine 400 MCG, Admixture Fee 1 EACH in Sodium Chloride 0.9% 96 ML IVPB SCH (20:36)
[2023-03-19] MEDS: cloNIDine 0.1 MG TAB PO SCH ×4 (01:30→18:46)
[2023-03-19] MEDS: Ibuprofen 100 MG/5 ML UDCUP PER TUBE SCH ×3 (01:31→18:47)
[2023-03-19] MEDS: Acetaminophen 650 MG/20.3 ML UDCUP PER TUBE SCH ×4 (04:15→20:32)
[2023-03-19 04:48] LABS: #Basophils 0.1 thou/uL (0.0-0.2); #Eosinphils 0.3 thou/uL (0.0-0.7); #Monocytes 0.8 thou/uL (0.11-0.59); #Neutrophils 9.4 thou/uL (1.40-6.50); %Basophils 0.9 % (0.0-1.0); %Eosinophils 2.3 % (0.0-10.0); %Lymphocytes 11.8 % (21.0-51.0); %Monocytes 6.8 % (0.0-10.0); %Neutrophils 77.8 % (42.0-75.0); Hemoglobin 10.7 g/dL (14.0-18.0); Mean Corpuscular HGB CONC 34.5 g/dL (32.0-36.0); Mean Corpuscular Volume 95.7 fl (78.0-98.0); Mean Platelet Volume 8.9 fL (7.4-10.4); Platelet Count 533 10x3/uL (130-400); RBC Distribution Width 13.9 % (11.5-14.5); Red Blood Cell (RBC) Count 3.24 mill/uL (4.70-6.10); White Blood Cell (WBC) Count 12.1 10x3/uL (4.8-10.8)
[2023-03-19 05:30] LABS: ALT (SGPT) 85 U/L (8-55); AST (SGOT) 70 U/L (5-34); Albumin 3.5 g/dL (3.5-5.0); Alkaline Phosphatase 127 U/L (40-110); Anion Gap 11 mmol/L (10-20); BUN (Urea Nitrogen) 16 mg/dL (8.9-20.6); Bilirubin, Total 0.6 mg/dL (0.2-1.2); Calc. Creatinine Clearance 101 mL/min (70-130); Calcium 9.4 mg/dL (7.8-10.44); Carbon Dioxide 26 mmol/L (22-29); Chloride 100 mmol/L (98-107); Estimated GFR 124; Globulin 3.7 g/dL (2.4-3.5); Glucose 126 mg/dL (70-105); Potassium 4.1 mmol/L (3.5-5.1); Protein, Total 7.2 g/dL (6.0-8.3); Sodium 133 mmol/L (136-145)
[2023-03-19] MEDS ORDERED: Atropine Sulfate 1 mg/10 ml Syringe ONE (06:11)
[2023-03-19] MEDS ORDERED: Sodium Chloride 0.9% 500 ML IV SCH (06:15)
[2023-03-19] MEDS: Ipratropium/Albuterol 3 ML NEB NEB SCH ×3 (07:15→18:25)
[2023-03-19] MEDS: carBAMazepine 200 MG TAB PO SCH ×3 (09:10→15:59)
[2023-03-19] MEDS: Senokot S 8.6-50 MG TAB PO SCH ×2 (09:11→20:32)
[2023-03-19] MEDS: Bisacodyl 5 MG TAB PO SCH (09:11)
[2023-03-19] MEDS: Polyethylene Glycol 3350 17 GM Packet PO SCH (09:11)
[2023-03-19] MEDS: Gabapentin 300 MG CAP PER TUBE SCH ×3 (09:12→20:31)
[2023-03-19] MEDS: Morphine 2 MG/ML VIAL SLOW IVP PRN (09:13)
[2023-03-19] MEDS: DOPamine 400 MG/D5W 250 ML 250 ML IVPB SCH ×2 (09:14→20:30)
[2023-03-19] MEDS: Famotidine 20 MG TAB PER TUBE SCH ×2 (10:23→20:32)
[2023-03-19] MEDS: Dexmedetomidine 400 MCG, Admixture Fee 1 EACH in Sodium Chloride 0.9% 96 ML IVPB SCH (10:24)
[2023-03-19] MEDS: Lorazepam 2 MG/ML VIAL SLOW IVP PRN (21:31)
[2023-03-20] MEDS: Morphine 2 MG/ML VIAL SLOW IVP PRN ×2 (00:12→20:25)
[2023-03-20] MEDS: cloNIDine 0.1 MG TAB PO SCH ×2 (00:13→05:46)
[2023-03-20 04:10] LABS: #Basophils 0.1 thou/uL (0.0-0.2); #Eosinphils 0.1 thou/uL (0.0-0.7); #Neutrophils 6.9 thou/uL (1.40-6.50); %Basophils 1.3 % (0.0-1.0); %Eosinophils 1.3 % (0.0-10.0); %Lymphocytes 19.1 % (21.0-51.0); %Monocytes 10.2 % (0.0-10.0); %Neutrophils 67.7 % (42.0-75.0); Hematocrit 31.7 % (42.0-52.0); Hemoglobin 10.8 g/dL (14.0-18.0); Mean Corpuscular HGB CONC 34.1 g/dL (32.0-36.0); Mean Corpuscular Hemoglobin 32.6 pg (27.0-31.0); Mean Corpuscular Volume 95.8 fl (78.0-98.0); Mean Platelet Volume 8.8 fL (7.4-10.4); Platelet Count 560 10x3/uL (130-400); RBC Distribution Width 13.8 % (11.5-14.5); Red Blood Cell (RBC) Count 3.31 mill/uL (4.70-6.10); White Blood Cell (WBC) Count 10.2 10x3/uL (4.8-10.8)
[2023-03-20 04:41] LABS: ALT (SGPT) 84 U/L (8-55); AST (SGOT) 65 U/L (5-34); Albumin 3.8 g/dL (3.5-5.0); Alkaline Phosphatase 134 U/L (40-110); Anion Gap 13 mmol/L (10-20); BUN (Urea Nitrogen) 16 mg/dL (8.9-20.6); Bilirubin, Total 0.6 mg/dL (0.2-1.2); Calc. Creatinine Clearance 105 mL/min (70-130); Calcium 9.6 mg/dL (7.8-10.44); Carbon Dioxide 25 mmol/L (22-29); Chloride 98 mmol/L (98-107); Estimated GFR 121; Globulin 3.9 g/dL (2.4-3.5); Glucose 131 mg/dL (70-105); Potassium 4.2 mmol/L (3.5-5.1); Protein, Total 7.7 g/dL (6.0-8.3); Sodium 132 mmol/L (136-145)
[2023-03-20] MEDS: Ibuprofen 100 MG/5 ML UDCUP PER TUBE SCH (05:38)
[2023-03-20] MEDS: Acetaminophen 650 MG/20.3 ML UDCUP PER TUBE SCH ×4 (05:40→20:26)
[2023-03-20] MEDS: DOPamine 400 MG/D5W 250 ML 250 ML IVPB SCH ×3 (05:47→18:30)
[2023-03-20] MEDS: Fentanyl CADD 100 ML IV SCH (05:57)
[2023-03-20] MEDS: Ipratropium/Albuterol 3 ML NEB NEB SCH ×3 (07:42→19:55)
[2023-03-20] MEDS: carBAMazepine 200 MG TAB PO SCH ×3 (09:06→17:30)
[2023-03-20] MEDS: Gabapentin 300 MG CAP PER TUBE SCH ×3 (09:08→20:26)
[2023-03-20] MEDS: Bisacodyl 5 MG TAB PO SCH (09:08)
[2023-03-20] MEDS: Senokot S 8.6-50 MG TAB PO SCH ×2 (09:09→20:27)
[2023-03-20] MEDS: Famotidine 20 MG TAB PER TUBE SCH ×2 (09:09→20:26)
[2023-03-20] MEDS: Polyethylene Glycol 3350 17 GM Packet PO SCH (09:09)
[2023-03-20] MEDS ORDERED: EPINEPHrine 1 MG/10 ML Abboject SYRINGE ONE (11:28)
[2023-03-20] MEDS: fentaNYL 50 mcg/hour Patch TD SCH (11:39)
[2023-03-20] MEDS: Lorazepam 2 MG/ML VIAL SLOW IVP PRN (20:26)
[2023-03-20] MEDS ORDERED: EPINEPHrine 1 MG/ML VIAL ONE (21:13)
[2023-03-20] MEDS: Scopolamine 1 mg/72 hour Patch TD SCH (23:10)
[2023-03-21] MEDS: Ondansetron PF 4 MG/2 ML Vial IVP PRN (01:38)
[2023-03-21] MEDS: Acetaminophen 650 MG/20.3 ML UDCUP PER TUBE SCH ×4 (02:19→20:01)
[2023-03-21 04:30] LABS: #Basophils 0.1 thou/uL (0.0-0.2); #Eosinphils 0.2 thou/uL (0.0-0.7); #Neutrophils 13.2 thou/uL (1.40-6.50); %Basophils 0.7 % (0.0-1.0); %Eosinophils 1.3 % (0.0-10.0); %Lymphocytes 9.9 % (21.0-51.0); %Monocytes 6.4 % (0.0-10.0); %Neutrophils 81.3 % (42.0-75.0); Hematocrit 31.5 % (42.0-52.0); Hemoglobin 11.1 g/dL (14.0-18.0); Mean Corpuscular HGB CONC 35.2 g/dL (32.0-36.0); Mean Corpuscular Hemoglobin 33.1 pg (27.0-31.0); Mean Platelet Volume 8.6 fL (7.4-10.4); Platelet Count 533 10x3/uL (130-400); RBC Distribution Width 13.6 % (11.5-14.5); Red Blood Cell (RBC) Count 3.35 mill/uL (4.70-6.10); White Blood Cell (WBC) Count 16.2 10x3/uL (4.8-10.8)
[2023-03-21 04:57] LABS: ALT (SGPT) 81 U/L (8-55); AST (SGOT) 57 U/L (5-34); Albumin 3.7 g/dL (3.5-5.0); Alkaline Phosphatase 121 U/L (40-110); Anion Gap 13 mmol/L (10-20); BUN (Urea Nitrogen) 15 mg/dL (8.9-20.6); Bilirubin, Total 0.6 mg/dL (0.2-1.2); Calc. Creatinine Clearance 102 mL/min (70-130); Calcium 9.8 mg/dL (7.8-10.44); Carbon Dioxide 26 mmol/L (22-29); Chloride 98 mmol/L (98-107); Estimated GFR 126; Globulin 4.2 g/dL (2.4-3.5); Glucose 122 mg/dL (70-105); Potassium 3.8 mmol/L (3.5-5.1); Protein, Total 7.9 g/dL (6.0-8.3); Sodium 133 mmol/L (136-145)
[2023-03-21] MEDS: DOPamine 400 MG/D5W 250 ML 250 ML IVPB SCH ×2 (06:05→19:51)
[2023-03-21] MEDS: Ipratropium/Albuterol 3 ML NEB NEB SCH ×3 (06:35→19:38)
[2023-03-21] MEDS: carBAMazepine 200 MG TAB PO SCH (08:00)
[2023-03-21] MEDS: Bisacodyl 5 MG TAB PO SCH (09:00)
[2023-03-21] MEDS: Senokot S 8.6-50 MG TAB PO SCH ×2 (09:00→20:02)
[2023-03-21] MEDS: Gabapentin 300 MG CAP PER TUBE SCH ×3 (10:00→20:01)
[2023-03-21] MEDS: Famotidine 20 MG TAB PER TUBE SCH ×2 (10:27→20:01)
[2023-03-21] MEDS: Polyethylene Glycol 3350 17 GM Packet PO SCH (10:28)
[2023-03-21] MEDS: Lorazepam 2 MG/ML VIAL SLOW IVP PRN (21:00)
[2023-03-22] MEDS: Lorazepam 2 MG/ML VIAL SLOW IVP PRN ×4 (01:36→20:53)
[2023-03-22] MEDS: Acetaminophen 650 MG/20.3 ML UDCUP PER TUBE SCH ×4 (03:37→20:54)
[2023-03-22 05:03] LABS: #Basophils 0.1 thou/uL (0.0-0.2); #Eosinphils 0.3 thou/uL (0.0-0.7); #Monocytes 1.1 thou/uL (0.11-0.59); #Neutrophils 14.5 thou/uL (1.40-6.50); %Basophils 0.8 % (0.0-1.0); %Eosinophils 1.5 % (0.0-10.0); %Monocytes 6.1 % (0.0-10.0); %Neutrophils 82.1 % (42.0-75.0); Hematocrit 30.2 % (42.0-52.0); Hemoglobin 10.4 g/dL (14.0-18.0); Mean Corpuscular HGB CONC 34.4 g/dL (32.0-36.0); Mean Corpuscular Hemoglobin 32.9 pg (27.0-31.0); Mean Corpuscular Volume 95.6 fl (78.0-98.0); Mean Platelet Volume 8.5 fL (7.4-10.4); Platelet Count 505 10x3/uL (130-400); RBC Distribution Width 13.8 % (11.5-14.5); Red Blood Cell (RBC) Count 3.16 mill/uL (4.70-6.10); White Blood Cell (WBC) Count 17.7 10x3/uL (4.8-10.8)
[2023-03-22 05:29] LABS: ALT (SGPT) 68 U/L (8-55); AST (SGOT) 45 U/L (5-34); Albumin 3.9 g/dL (3.5-5.0); Alkaline Phosphatase 121 U/L (40-110); Anion Gap 13 mmol/L (10-20); BUN (Urea Nitrogen) 18 mg/dL (8.9-20.6); Bilirubin, Total 0.6 mg/dL (0.2-1.2); Calc. Creatinine Clearance 91 mL/min (70-130); Carbon Dioxide 26 mmol/L (22-29); Chloride 97 mmol/L (98-107); Estimated GFR 122; Globulin 3.7 g/dL (2.4-3.5); Glucose 119 mg/dL (70-105); Protein, Total 7.6 g/dL (6.0-8.3); Sodium 132 mmol/L (136-145)
[2023-03-22] MEDS: Ipratropium/Albuterol 3 ML NEB NEB SCH ×3 (06:43→18:31)
[2023-03-22] MEDS: Senokot S 8.6-50 MG TAB PO SCH ×2 (07:21→20:53)
[2023-03-22] MEDS: Famotidine 20 MG TAB PER TUBE SCH ×2 (07:21→20:53)
[2023-03-22] MEDS: Polyethylene Glycol 3350 17 GM Packet PO SCH (07:21)
[2023-03-22] MEDS: Naloxegol 12.5 MG TAB PER TUBE SCH (07:21)
[2023-03-22] MEDS: Gabapentin 300 MG CAP PER TUBE SCH ×3 (07:21→20:53)
[2023-03-22] MEDS: Bisacodyl 5 MG TAB PO SCH (07:22)
[2023-03-22] MEDS: Sertraline 25 MG TAB PER TUBE SCH (08:59)
[2023-03-22] MEDS ORDERED: Sertraline 100 MG TAB PER TUBE SCH (09:00)
[2023-03-22] MEDS: DOPamine 400 MG/D5W 250 ML 250 ML IVPB SCH ×2 (16:00→22:55)
[2023-03-22] MEDS: Cyclobenzaprine 10 MG TAB PO PRN (20:54)
[2023-03-23] MEDS: Lorazepam 2 MG/ML VIAL SLOW IVP PRN ×2 (00:35→02:39)
[2023-03-23] MEDS: Cyclobenzaprine 10 MG TAB PO PRN (02:38)
[2023-03-23] MEDS: Acetaminophen 650 MG/20.3 ML UDCUP PER TUBE SCH ×4 (03:39→20:53)
[2023-03-23] MEDS: LevoFLOXacin 750 MG TAB PER TUBE SCH (06:58)
[2023-03-23 07:17] LABS: #Basophils 0.1 thou/uL (0.0-0.2); #Eosinphils 0.7 thou/uL (0.0-0.7); #Monocytes 1.2 thou/uL (0.11-0.59); #Neutrophils 12.9 thou/uL (1.40-6.50); %Basophils 0.8 % (0.0-1.0); %Eosinophils 4.2 % (0.0-10.0); %Lymphocytes 6.9 % (21.0-51.0); %Monocytes 7.4 % (0.0-10.0); %Neutrophils 80.3 % (42.0-75.0); Hemoglobin 11.7 g/dL (14.0-18.0); Mean Corpuscular HGB CONC 34.4 g/dL (32.0-36.0); Mean Corpuscular Hemoglobin 32.8 pg (27.0-31.0); Mean Corpuscular Volume 95.2 fl (78.0-98.0); Mean Platelet Volume 8.4 fL (7.4-10.4); Platelet Count 475 10x3/uL (130-400); RBC Distribution Width 14.1 % (11.5-14.5); Red Blood Cell (RBC) Count 3.57 mill/uL (4.70-6.10)
[2023-03-23] MEDS: Ipratropium/Albuterol 3 ML NEB NEB SCH ×3 (07:21→19:00)
[2023-03-23] MEDS: Naloxegol 12.5 MG TAB PER TUBE SCH (07:50)
[2023-03-23 07:51] LABS: ALT (SGPT) 73 U/L (8-55); AST (SGOT) 52 U/L (5-34); Albumin 3.7 g/dL (3.5-5.0); Alkaline Phosphatase 123 U/L (40-110); Anion Gap 16 mmol/L (10-20); BUN (Urea Nitrogen) 17 mg/dL (8.9-20.6); Bilirubin, Total 0.5 mg/dL (0.2-1.2); Calc. Creatinine Clearance 97 mL/min (70-130); Carbon Dioxide 23 mmol/L (22-29); Chloride 99 mmol/L (98-107); Estimated GFR 124; Globulin 4.2 g/dL (2.4-3.5); Glucose 133 mg/dL (70-105); Potassium 3.7 mmol/L (3.5-5.1); Protein, Total 7.9 g/dL (6.0-8.3); Sodium 134 mmol/L (136-145)
[2023-03-23] MEDS: Bisacodyl 5 MG TAB PO SCH (07:51)
[2023-03-23] MEDS: Famotidine 20 MG TAB PER TUBE SCH ×2 (07:52→20:53)
[2023-03-23] MEDS: Sertraline 25 MG TAB PER TUBE SCH (07:52)
[2023-03-23] MEDS: Polyethylene Glycol 3350 17 GM Packet PO SCH (07:52)
[2023-03-23] MEDS: Gabapentin 300 MG CAP PER TUBE SCH ×3 (07:52→20:53)
[2023-03-23] MEDS: Senokot S 8.6-50 MG TAB PO SCH ×2 (07:52→20:54)
[2023-03-23] MEDS: fentaNYL 50 mcg/mL 1 mL Vial SLOW IVP PRN (09:09)
[2023-03-23] MEDS: fentaNYL 50 mcg/hour Patch TD SCH (10:18)
[2023-03-23] MEDS ORDERED: CEFAZOLIN 1 GM VIAL ONE (11:56)
[2023-03-23] MEDS ORDERED: Heparin 10,000 UNITS/ 10 ML VIAL ONE (11:56)
[2023-03-23] MEDS ORDERED: Lidocaine 1% (PF) 30 ML VIAL ONE (11:56)
[2023-03-23] MEDS ORDERED: Iopamidol 370 76% 100 ML VIAL ONE (13:06)
[2023-03-23] MEDS ORDERED: fentaNYL 50 mcg/mL 1 mL Vial ONE (14:58)
[2023-03-23] MEDS: DOPamine 400 MG/D5W 250 ML 250 ML IVPB SCH (15:03)
[2023-03-23] MEDS: Ondansetron PF 4 MG/2 ML Vial IVP PRN (20:50)
[2023-03-23] MEDS: Scopolamine 1 mg/72 hour Patch TD SCH (21:04)
[2023-03-24] MEDS: Lorazepam 2 MG/ML VIAL SLOW IVP PRN ×3 (01:06→07:30)
[2023-03-24] MEDS: Acetaminophen 650 MG/20.3 ML UDCUP PER TUBE SCH ×4 (04:17→20:40)
[2023-03-24] MEDS: Ondansetron PF 4 MG/2 ML Vial IVP PRN ×2 (04:56→14:00)
[2023-03-24] MEDS: Cyclobenzaprine 10 MG TAB PO PRN ×3 (05:02→14:45)
[2023-03-24] MEDS: LevoFLOXacin 750 MG TAB PER TUBE SCH (05:02)
[2023-03-24] MEDS: Ipratropium/Albuterol 3 ML NEB NEB SCH ×3 (07:09→18:54)
[2023-03-24] MEDS: Sertraline 25 MG TAB PER TUBE SCH (08:15)
[2023-03-24] MEDS: Senokot S 8.6-50 MG TAB PO SCH ×2 (08:15→20:42)
[2023-03-24] MEDS: Famotidine 20 MG TAB PER TUBE SCH ×2 (08:15→20:42)
[2023-03-24] MEDS: Gabapentin 300 MG CAP PER TUBE SCH ×3 (08:15→20:42)
[2023-03-24] MEDS: Polyethylene Glycol 3350 17 GM Packet PO SCH (08:15)
[2023-03-24] MEDS ORDERED: [UNRECOGNIZED DRUG - REMARK] IVPB PRN (11:24)
[2023-03-24] MEDS: Vancomycin 1 GM in Premix 1 BAG IVPB SCH ×2 (12:15→20:40)
[2023-03-24 12:54] LABS: #Basophils 0.1 thou/uL (0.0-0.2); #Eosinphils 0.7 thou/uL (0.0-0.7); #Monocytes 1.3 thou/uL (0.11-0.59); #Neutrophils 13.2 thou/uL (1.40-6.50); %Basophils 0.7 % (0.0-1.0); %Eosinophils 4.4 % (0.0-10.0); %Lymphocytes 7.7 % (21.0-51.0); %Monocytes 7.7 % (0.0-10.0); Hematocrit 31.7 % (42.0-52.0); Hemoglobin 10.9 g/dL (14.0-18.0); Mean Corpuscular HGB CONC 34.4 g/dL (32.0-36.0); Mean Corpuscular Hemoglobin 33.4 pg (27.0-31.0); Mean Corpuscular Volume 97.2 fl (78.0-98.0); Mean Platelet Volume 8.4 fL (7.4-10.4); Platelet Count 445 10x3/uL (130-400); RBC Distribution Width 14.2 % (11.5-14.5); Red Blood Cell (RBC) Count 3.26 mill/uL (4.70-6.10); White Blood Cell (WBC) Count 16.8 10x3/uL (4.8-10.8)
[2023-03-24 13:14] LABS: ALT (SGPT) 67 U/L (8-55); AST (SGOT) 55 U/L (5-34); Albumin 3.9 g/dL (3.5-5.0); Alkaline Phosphatase 139 U/L (40-110); Anion Gap 14 mmol/L (10-20); BUN (Urea Nitrogen) 19 mg/dL (8.9-20.6); Bilirubin, Total 0.6 mg/dL (0.2-1.2); Calc. Creatinine Clearance 87 mL/min (70-130); Calcium 10.1 mg/dL (7.8-10.44); Carbon Dioxide 25 mmol/L (22-29); Chloride 98 mmol/L (98-107); Estimated GFR 120; Glucose 102 mg/dL (70-105); Potassium 4.1 mmol/L (3.5-5.1); Protein, Total 7.9 g/dL (6.0-8.3); Sodium 133 mmol/L (136-145)
[2023-03-24] MEDS ORDERED: Sodium Chloride 0.9% 500 ML IV SCH (13:45)
[2023-03-24] MEDS ORDERED: levETIRAcetam 500 MG/5 ML VIAL SLOW IVP SCH (13:45)
[2023-03-24] MEDS: fentaNYL 50 mcg/mL 1 mL Vial SLOW IVP PRN (14:00)
[2023-03-24] MEDS: DOPamine 400 MG/D5W 250 ML 250 ML IVPB SCH (14:55)
[2023-03-24] MEDS: levETIRAcetam 500 MG/5 ML VIAL SLOW IVP SCH (20:40)
[2023-03-25] MEDS: fentaNYL 50 mcg/mL 1 mL Vial SLOW IVP PRN ×3 (00:36→17:35)
[2023-03-25] MEDS: Acetaminophen 650 MG/20.3 ML UDCUP PER TUBE SCH ×4 (03:39→20:42)
[2023-03-25] MEDS: Vancomycin 1 GM in Premix 1 BAG IVPB SCH (03:39)
[2023-03-25 05:24] LABS: #Basophils 0.1 thou/uL (0.0-0.2); #Eosinphils 0.7 thou/uL (0.0-0.7); #Monocytes 1.2 thou/uL (0.11-0.59); #Neutrophils 11.1 thou/uL (1.40-6.50); %Basophils 0.7 % (0.0-1.0); %Eosinophils 4.9 % (0.0-10.0); %Lymphocytes 9.7 % (21.0-51.0); %Monocytes 8.1 % (0.0-10.0); %Neutrophils 76.1 % (42.0-75.0); Hematocrit 30.8 % (42.0-52.0); Hemoglobin 10.5 g/dL (14.0-18.0); Mean Corpuscular HGB CONC 34.1 g/dL (32.0-36.0); Mean Corpuscular Hemoglobin 32.7 pg (27.0-31.0); Mean Platelet Volume 8.6 fL (7.4-10.4); Platelet Count 420 10x3/uL (130-400); Red Blood Cell (RBC) Count 3.21 mill/uL (4.70-6.10); White Blood Cell (WBC) Count 14.6 10x3/uL (4.8-10.8)
[2023-03-25 05:49] LABS: ALT (SGPT) 57 U/L (8-55); AST (SGOT) 42 U/L (5-34); Albumin 3.6 g/dL (3.5-5.0); Alkaline Phosphatase 131 U/L (40-110); Anion Gap 13 mmol/L (10-20); BUN (Urea Nitrogen) 15 mg/dL (8.9-20.6); Bilirubin, Total 0.5 mg/dL (0.2-1.2); Calc. Creatinine Clearance 103 mL/min (70-130); Calcium 9.7 mg/dL (7.8-10.44); Carbon Dioxide 26 mmol/L (22-29); Chloride 98 mmol/L (98-107); Estimated GFR 127; Globulin 3.7 g/dL (2.4-3.5); Glucose 120 mg/dL (70-105); Potassium 3.7 mmol/L (3.5-5.1); Protein, Total 7.3 g/dL (6.0-8.3); Sodium 133 mmol/L (136-145)
[2023-03-25] MEDS: LevoFLOXacin 750 MG TAB PER TUBE SCH (06:11)
[2023-03-25] MEDS: Ipratropium/Albuterol 3 ML NEB NEB SCH ×3 (06:59→19:46)
[2023-03-25] MEDS: Lorazepam 2 MG/ML VIAL SLOW IVP PRN (07:40)
[2023-03-25] MEDS ORDERED: Magnesium 2 GM/50 ML(in water) 2 GM in Premix 1 BAG IVPB SCH (08:00)
[2023-03-25] MEDS: Senokot S 8.6-50 MG TAB PO SCH ×2 (08:15→20:38)
[2023-03-25] MEDS: Famotidine 20 MG TAB PER TUBE SCH ×2 (08:15→20:38)
[2023-03-25] MEDS: Gabapentin 300 MG CAP PER TUBE SCH ×3 (08:15→20:38)
[2023-03-25] MEDS: Cyclobenzaprine 10 MG TAB PO PRN ×2 (08:15→15:45)
[2023-03-25] MEDS: Polyethylene Glycol 3350 17 GM Packet PO SCH (08:15)
[2023-03-25] MEDS: Sertraline 25 MG TAB PER TUBE SCH (08:15)
[2023-03-25] MEDS: levETIRAcetam 500 MG/5 ML VIAL SLOW IVP SCH ×2 (08:15→20:37)
[2023-03-25] MEDS ORDERED: Vancomycin 1 GM in Premix 1 BAG IVPB SCH ×2 (11:00→12:00)
[2023-03-25 11:44] LABS: Vancomycin, Trough 15.7 ug/mL
[2023-03-25] MEDS: DOPamine 400 MG/D5W 250 ML 250 ML IVPB SCH (13:35)
[2023-03-26] MEDS: Lorazepam 2 MG/ML VIAL SLOW IVP PRN ×3 (00:41→17:00)
[2023-03-26] MEDS: Acetaminophen 650 MG/20.3 ML UDCUP PER TUBE SCH ×4 (03:09→21:25)
[2023-03-26] MEDS: LevoFLOXacin 750 MG TAB PER TUBE SCH (05:19)
[2023-03-26 06:41] LABS: #Basophils 0.1 thou/uL (0.0-0.2); #Monocytes 1.1 thou/uL (0.11-0.59); #Neutrophils 7.4 thou/uL (1.40-6.50); %Eosinophils 8.8 % (0.0-10.0); %Lymphocytes 13.3 % (21.0-51.0); %Monocytes 9.6 % (0.0-10.0); Hematocrit 30.5 % (42.0-52.0); Hemoglobin 10.4 g/dL (14.0-18.0); Mean Corpuscular HGB CONC 34.1 g/dL (32.0-36.0); Mean Corpuscular Hemoglobin 32.8 pg (27.0-31.0); Mean Corpuscular Volume 96.2 fl (78.0-98.0); Mean Platelet Volume 8.1 fL (7.4-10.4); Platelet Count 373 10x3/uL (130-400); RBC Distribution Width 14.1 % (11.5-14.5); Red Blood Cell (RBC) Count 3.17 mill/uL (4.70-6.10); White Blood Cell (WBC) Count 11.1 10x3/uL (4.8-10.8)
[2023-03-26 07:05] LABS: ALT (SGPT) 60 U/L (8-55); AST (SGOT) 43 U/L (5-34); Albumin 3.4 g/dL (3.5-5.0); Alkaline Phosphatase 121 U/L (40-110); Anion Gap 14 mmol/L (10-20); BUN (Urea Nitrogen) 13 mg/dL (8.9-20.6); Bilirubin, Total 0.3 mg/dL (0.2-1.2); Calc. Creatinine Clearance 105 mL/min (70-130); Calcium 9.6 mg/dL (7.8-10.44); Carbon Dioxide 25 mmol/L (22-29); Chloride 98 mmol/L (98-107); Estimated GFR 127; Globulin 3.9 g/dL (2.4-3.5); Glucose 100 mg/dL (70-105); Potassium 4.1 mmol/L (3.5-5.1); Protein, Total 7.3 g/dL (6.0-8.3); Sodium 133 mmol/L (136-145)
[2023-03-26] MEDS: Ipratropium/Albuterol 3 ML NEB NEB SCH ×3 (07:10→19:17)
[2023-03-26] MEDS: levETIRAcetam 500 MG/5 ML VIAL SLOW IVP SCH ×2 (09:49→21:25)
[2023-03-26] MEDS: Scopolamine 1 mg/72 hour Patch TD SCH (09:51)
[2023-03-26] MEDS: Gabapentin 300 MG CAP PER TUBE SCH ×3 (09:53→21:26)
[2023-03-26] MEDS: Cyclobenzaprine 10 MG TAB PO PRN ×2 (09:53→17:00)
[2023-03-26] MEDS: Famotidine 20 MG TAB PER TUBE SCH ×2 (09:53→21:27)
[2023-03-26] MEDS: Sertraline 25 MG TAB PER TUBE SCH (09:53)
[2023-03-26] MEDS: Polyethylene Glycol 3350 17 GM Packet PO SCH (09:54)
[2023-03-26] MEDS: Senokot S 8.6-50 MG TAB PO SCH ×2 (09:54→21:27)
[2023-03-26] MEDS: fentaNYL 50 mcg/hour Patch TD SCH (09:55)
[2023-03-26] MEDS: fentaNYL 50 mcg/mL 1 mL Vial SLOW IVP PRN ×2 (10:04→17:00)
[2023-03-26] MEDS: Midodrine HCl 5 MG TAB PO SCH ×2 (17:00→21:26)
[2023-03-27] MEDS: Acetaminophen 650 MG/20.3 ML UDCUP PER TUBE SCH ×4 (02:14→21:14)
[2023-03-27] MEDS: DOPamine 400 MG/D5W 250 ML 250 ML IVPB SCH (02:40)
[2023-03-27 06:09] LABS: #Basophils 0.1 thou/uL (0.0-0.2); #Eosinphils 0.7 thou/uL (0.0-0.7); #Neutrophils 8.1 thou/uL (1.40-6.50); %Eosinophils 6.2 % (0.0-10.0); %Lymphocytes 14.8 % (21.0-51.0); %Monocytes 8.2 % (0.0-10.0); %Neutrophils 69.3 % (42.0-75.0); Hematocrit 30.9 % (42.0-52.0); Hemoglobin 10.6 g/dL (14.0-18.0); Mean Corpuscular HGB CONC 34.3 g/dL (32.0-36.0); Mean Corpuscular Hemoglobin 33.3 pg (27.0-31.0); Mean Corpuscular Volume 97.2 fl (78.0-98.0); Mean Platelet Volume 8.3 fL (7.4-10.4); Platelet Count 410 10x3/uL (130-400); Red Blood Cell (RBC) Count 3.18 mill/uL (4.70-6.10); White Blood Cell (WBC) Count 11.7 10x3/uL (4.8-10.8)
[2023-03-27] MEDS: LevoFLOXacin 750 MG TAB PER TUBE SCH (06:12)
[2023-03-27 06:35] LABS: ALT (SGPT) 77 U/L (8-55); AST (SGOT) 59 U/L (5-34); Albumin 3.6 g/dL (3.5-5.0); Alkaline Phosphatase 127 U/L (40-110); Anion Gap 13 mmol/L (10-20); BUN (Urea Nitrogen) 15 mg/dL (8.9-20.6); Bilirubin, Total 0.4 mg/dL (0.2-1.2); Calc. Creatinine Clearance 115 mL/min (70-130); Carbon Dioxide 25 mmol/L (22-29); Chloride 97 mmol/L (98-107); Estimated GFR 127; Globulin 4.1 g/dL (2.4-3.5); Glucose 120 mg/dL (70-105); Protein, Total 7.7 g/dL (6.0-8.3); Sodium 131 mmol/L (136-145)
[2023-03-27] MEDS: Ipratropium/Albuterol 3 ML NEB NEB SCH ×3 (07:44→18:54)
[2023-03-27] MEDS: fentaNYL 50 mcg/mL 1 mL Vial SLOW IVP PRN ×3 (08:27→16:35)
[2023-03-27] MEDS: Lorazepam 2 MG/ML VIAL SLOW IVP PRN ×3 (08:27→16:35)
[2023-03-27] MEDS: levETIRAcetam 500 MG/5 ML VIAL SLOW IVP SCH ×2 (08:27→21:18)
[2023-03-27] MEDS: Famotidine 20 MG TAB PER TUBE SCH ×2 (08:27→21:18)
[2023-03-27] MEDS: Sertraline 25 MG TAB PER TUBE SCH (08:28)
[2023-03-27] MEDS: Midodrine HCl 5 MG TAB PO SCH ×3 (08:28→21:19)
[2023-03-27] MEDS: Cyclobenzaprine 10 MG TAB PO PRN ×2 (08:28→16:35)
[2023-03-27] MEDS: Gabapentin 300 MG CAP PER TUBE SCH ×3 (08:28→21:18)
[2023-03-27] MEDS: Polyethylene Glycol 3350 17 GM Packet PO SCH (08:36)
[2023-03-27] MEDS: Fludrocortisone Acetate 0.1 MG TAB PO SCH (08:36)
[2023-03-27] MEDS: Senokot S 8.6-50 MG TAB PO SCH ×2 (08:37→21:19)
[2023-03-28] MEDS: Lorazepam 2 MG/ML VIAL SLOW IVP PRN ×5 (03:22→17:45)
[2023-03-28] MEDS: Acetaminophen 650 MG/20.3 ML UDCUP PER TUBE SCH ×4 (03:22→21:46)
[2023-03-28] MEDS: Cyclobenzaprine 10 MG TAB PO PRN ×2 (03:22→08:10)
[2023-03-28 04:58] LABS: #Basophils 0.1 thou/uL (0.0-0.2); #Eosinphils 0.6 thou/uL (0.0-0.7); #Monocytes 1.1 thou/uL (0.11-0.59); #Neutrophils 4.8 thou/uL (1.40-6.50); %Basophils 1.2 % (0.0-1.0); %Eosinophils 7.2 % (0.0-10.0); %Lymphocytes 19.7 % (21.0-51.0); %Monocytes 13.1 % (0.0-10.0); %Neutrophils 58.3 % (42.0-75.0); Hematocrit 28.8 % (42.0-52.0); Hemoglobin 9.9 g/dL (14.0-18.0); Mean Corpuscular HGB CONC 34.4 g/dL (32.0-36.0); Mean Corpuscular Hemoglobin 33.4 pg (27.0-31.0); Mean Corpuscular Volume 97.3 fl (78.0-98.0); Mean Platelet Volume 8.2 fL (7.4-10.4); Platelet Count 343 10x3/uL (130-400); RBC Distribution Width 13.9 % (11.5-14.5); Red Blood Cell (RBC) Count 2.96 mill/uL (4.70-6.10); White Blood Cell (WBC) Count 8.2 10x3/uL (4.8-10.8)
[2023-03-28] MEDS: LevoFLOXacin 750 MG TAB PER TUBE SCH (05:15)
[2023-03-28 05:47] LABS: Anion Gap 15 mmol/L (10-20); BUN (Urea Nitrogen) 20 mg/dL (8.9-20.6); Calc. Creatinine Clearance 108 mL/min (70-130); Calcium 10.5 mg/dL (7.8-10.44); Carbon Dioxide 25 mmol/L (22-29); Chloride 98 mmol/L (98-107); Estimated GFR 126; Glucose 104 mg/dL (70-105); Phosphorus 4.1 mg/dL (2.3-4.7); Potassium 3.8 mmol/L (3.5-5.1); Sodium 134 mmol/L (136-145)
[2023-03-28] MEDS: Ipratropium/Albuterol 3 ML NEB NEB SCH ×3 (07:20→18:49)
[2023-03-28] MEDS ORDERED: Magnesium 2 GM/50 ML(in water) 2 GM in Premix 1 BAG IVPB SCH (07:30)
[2023-03-28] MEDS: fentaNYL 50 mcg/mL 1 mL Vial SLOW IVP PRN ×4 (08:07→17:45)
[2023-03-28] MEDS: Polyethylene Glycol 3350 17 GM Packet PO SCH (08:08)
[2023-03-28] MEDS: levETIRAcetam 500 MG/5 ML VIAL SLOW IVP SCH ×2 (08:08→21:43)
[2023-03-28] MEDS: Sertraline 25 MG TAB PER TUBE SCH (08:09)
[2023-03-28] MEDS: Gabapentin 300 MG CAP PER TUBE SCH ×3 (08:09→21:43)
[2023-03-28] MEDS: Famotidine 20 MG TAB PER TUBE SCH ×2 (08:09→21:43)
[2023-03-28] MEDS: Senokot S 8.6-50 MG TAB PO SCH ×2 (08:10→21:43)
[2023-03-28] MEDS: Midodrine HCl 5 MG TAB PO SCH ×3 (08:10→21:43)
[2023-03-28] MEDS: Fludrocortisone Acetate 0.1 MG TAB PO SCH (08:10)
[2023-03-29] MEDS: Acetaminophen 650 MG/20.3 ML UDCUP PER TUBE SCH ×4 (03:12→21:00)
[2023-03-29] MEDS: Lorazepam 2 MG/ML VIAL SLOW IVP PRN ×4 (03:13→21:33)
[2023-03-29] MEDS: fentaNYL 50 mcg/mL 1 mL Vial SLOW IVP PRN ×7 (03:13→21:33)
[2023-03-29] MEDS: LevoFLOXacin 750 MG TAB PER TUBE SCH (06:00)
[2023-03-29] MEDS: Ipratropium/Albuterol 3 ML NEB NEB SCH ×3 (07:34→18:38)
[2023-03-29] MEDS: Gabapentin 300 MG CAP PER TUBE SCH ×3 (08:43→21:01)
[2023-03-29] MEDS: Midodrine HCl 5 MG TAB PO SCH ×3 (08:43→21:01)
[2023-03-29] MEDS: Fludrocortisone Acetate 0.1 MG TAB PO SCH (08:43)
[2023-03-29] MEDS: Polyethylene Glycol 3350 17 GM Packet PO SCH (08:43)
[2023-03-29] MEDS: Famotidine 20 MG TAB PER TUBE SCH ×2 (08:43→21:01)
[2023-03-29] MEDS: Senokot S 8.6-50 MG TAB PO SCH ×2 (08:44→21:01)
[2023-03-29] MEDS: Sertraline 25 MG TAB PER TUBE SCH (08:44)
[2023-03-29] MEDS: levETIRAcetam 500 MG/5 ML VIAL SLOW IVP SCH ×2 (08:44→21:01)
[2023-03-29] MEDS: fentaNYL 50 mcg/hour Patch TD SCH (10:07)
[2023-03-30] MEDS: Scopolamine 1 mg/72 hour Patch TD SCH (01:55)
[2023-03-30] MEDS: fentaNYL 50 mcg/mL 1 mL Vial SLOW IVP PRN ×8 (01:56→22:37)
[2023-03-30] MEDS: Lorazepam 2 MG/ML VIAL SLOW IVP PRN ×5 (01:57→22:38)
[2023-03-30] MEDS: Acetaminophen 650 MG/20.3 ML UDCUP PER TUBE SCH ×4 (03:05→21:10)
[2023-03-30] MEDS: LevoFLOXacin 750 MG TAB PER TUBE SCH (05:36)
[2023-03-30] MEDS: Ipratropium/Albuterol 3 ML NEB NEB SCH ×3 (06:56→18:36)
[2023-03-30] MEDS: levETIRAcetam 500 MG/5 ML VIAL SLOW IVP SCH ×2 (07:57→21:11)
[2023-03-30] MEDS: Gabapentin 300 MG CAP PER TUBE SCH ×3 (07:58→21:11)
[2023-03-30] MEDS: Fludrocortisone Acetate 0.1 MG TAB PO SCH (07:58)
[2023-03-30] MEDS: Famotidine 20 MG TAB PER TUBE SCH ×2 (07:58→21:11)
[2023-03-30] MEDS: Midodrine HCl 5 MG TAB PO SCH ×3 (07:59→21:11)
[2023-03-30] MEDS: Senokot S 8.6-50 MG TAB PO SCH ×2 (07:59→21:11)
[2023-03-30] MEDS: Polyethylene Glycol 3350 17 GM Packet PO SCH (07:59)
[2023-03-30] MEDS: Sertraline 25 MG TAB PER TUBE SCH (07:59)
[2023-03-31] MEDS: Lorazepam 2 MG/ML VIAL SLOW IVP PRN ×6 (01:01→16:21)
[2023-03-31] MEDS: fentaNYL 50 mcg/mL 1 mL Vial SLOW IVP PRN ×8 (01:01→23:18)
[2023-03-31] MEDS: Acetaminophen 650 MG/20.3 ML UDCUP PER TUBE SCH ×4 (03:08→20:30)
[2023-03-31] MEDS: Ipratropium/Albuterol 3 ML NEB NEB SCH ×3 (07:13→18:14)
[2023-03-31] MEDS: Sertraline 25 MG TAB PER TUBE SCH (09:11)
[2023-03-31] MEDS: Gabapentin 300 MG CAP PER TUBE SCH ×3 (09:11→20:26)
[2023-03-31] MEDS: Senokot S 8.6-50 MG TAB PO SCH ×2 (09:11→20:25)
[2023-03-31] MEDS: Famotidine 20 MG TAB PER TUBE SCH ×2 (09:11→20:26)
[2023-03-31] MEDS: Midodrine HCl 5 MG TAB PO SCH ×3 (09:11→20:25)
[2023-03-31] MEDS: levETIRAcetam 500 MG/5 ML VIAL SLOW IVP SCH ×2 (09:12→20:25)
[2023-03-31] MEDS: Fludrocortisone Acetate 0.1 MG TAB PO SCH (09:12)
[2023-03-31] MEDS: Polyethylene Glycol 3350 17 GM Packet PO SCH (09:12)
[2023-03-31] MEDS: Sterile Water 10 ML VIAL IVP SCH ×2 (12:09→12:14)
[2023-03-31] MEDS: Activase 2 MG VIAL CATH SCH ×2 (12:09→12:14)
[2023-03-31] MEDS: Cyclobenzaprine 10 MG TAB PO PRN (14:17)
[2023-04-01] MEDS: fentaNYL 50 mcg/mL 1 mL Vial SLOW IVP PRN ×5 (03:25→18:22)
[2023-04-01] MEDS: Acetaminophen 650 MG/20.3 ML UDCUP PER TUBE SCH ×4 (03:25→20:49)
[2023-04-01] MEDS: Ipratropium/Albuterol 3 ML NEB NEB SCH ×3 (07:17→18:26)
[2023-04-01] MEDS: Gabapentin 300 MG CAP PER TUBE SCH ×3 (08:31→20:53)
[2023-04-01] MEDS: Senokot S 8.6-50 MG TAB PO SCH ×2 (08:31→20:53)
[2023-04-01] MEDS: Fludrocortisone Acetate 0.1 MG TAB PO SCH (08:31)
[2023-04-01] MEDS: levETIRAcetam 500 MG/5 ML VIAL SLOW IVP SCH ×2 (08:31→20:53)
[2023-04-01] MEDS: Midodrine HCl 5 MG TAB PO SCH ×3 (08:31→20:53)
[2023-04-01] MEDS: Cyclobenzaprine 10 MG TAB PO PRN ×3 (08:31→20:53)
[2023-04-01] MEDS: Famotidine 20 MG TAB PER TUBE SCH ×2 (08:31→20:53)
[2023-04-01] MEDS: Sertraline 25 MG TAB PER TUBE SCH (08:31)
[2023-04-01] MEDS: Polyethylene Glycol 3350 17 GM Packet PO SCH (08:32)
[2023-04-01] MEDS: Lorazepam 2 MG/ML VIAL SLOW IVP PRN ×2 (09:15→20:54)
[2023-04-01] MEDS: Ondansetron PF 4 MG/2 ML Vial IVP PRN (17:35)
[2023-04-02] MEDS: Scopolamine 1 mg/72 hour Patch TD SCH (00:23)
[2023-04-02] MEDS: fentaNYL 50 mcg/mL 1 mL Vial SLOW IVP PRN ×5 (00:25→17:43)
[2023-04-02] MEDS: Lorazepam 2 MG/ML VIAL SLOW IVP PRN ×3 (00:37→20:55)
[2023-04-02] MEDS: Acetaminophen 650 MG/20.3 ML UDCUP PER TUBE SCH ×4 (03:06→20:27)
[2023-04-02] MEDS: Ipratropium/Albuterol 3 ML NEB NEB SCH ×3 (06:48→18:34)
[2023-04-02] MEDS: Famotidine 20 MG TAB PER TUBE SCH ×2 (08:38→20:26)
[2023-04-02] MEDS: Fludrocortisone Acetate 0.1 MG TAB PO SCH (08:39)
[2023-04-02] MEDS: Gabapentin 300 MG CAP PER TUBE SCH ×3 (08:39→20:26)
[2023-04-02] MEDS: Midodrine HCl 5 MG TAB PO SCH ×3 (08:39→20:26)
[2023-04-02] MEDS: Sertraline 25 MG TAB PER TUBE SCH (08:39)
[2023-04-02] MEDS: levETIRAcetam 500 MG/5 ML VIAL SLOW IVP SCH ×2 (08:40→20:27)
[2023-04-02] MEDS: Senokot S 8.6-50 MG TAB PO SCH ×2 (09:17→20:26)
[2023-04-02] MEDS: Polyethylene Glycol 3350 17 GM Packet PO SCH (09:17)
[2023-04-02] MEDS: Ondansetron PF 4 MG/2 ML Vial IVP PRN (09:20)
[2023-04-03] MEDS: Acetaminophen 650 MG/20.3 ML UDCUP PER TUBE SCH ×4 (03:47→21:11)
[2023-04-03] MEDS: fentaNYL 50 mcg/mL 1 mL Vial SLOW IVP PRN ×3 (04:35→21:16)
[2023-04-03] MEDS: Ipratropium/Albuterol 3 ML NEB NEB SCH ×3 (06:31→18:21)
[2023-04-03] MEDS: Lorazepam 2 MG/ML VIAL SLOW IVP PRN ×4 (07:37→23:42)
[2023-04-03] MEDS: levETIRAcetam 500 MG/5 ML VIAL SLOW IVP SCH ×2 (09:20→21:18)
[2023-04-03] MEDS: Sertraline 25 MG TAB PER TUBE SCH (09:21)
[2023-04-03] MEDS: Gabapentin 300 MG CAP PER TUBE SCH ×3 (09:21→21:15)
[2023-04-03] MEDS: Midodrine HCl 5 MG TAB PO SCH ×3 (09:22→21:18)
[2023-04-03] MEDS: Fludrocortisone Acetate 0.1 MG TAB PO SCH (09:22)
[2023-04-03] MEDS: Famotidine 20 MG TAB PER TUBE SCH ×2 (09:23→21:18)
[2023-04-03] MEDS: Polyethylene Glycol 3350 17 GM Packet PO SCH (09:23)
[2023-04-03] MEDS: Senokot S 8.6-50 MG TAB PO SCH (09:24)
[2023-04-03] MEDS ORDERED: Aripiprazole 10 MG TAB PER TUBE SCH (10:47)
[2023-04-03] MEDS ORDERED: Senokot S 8.6-50 MG TAB PO PRN (10:56)
[2023-04-03] MEDS ORDERED: Polyethylene Glycol 3350 17 GM Packet PO PRN (10:56)
[2023-04-03] MEDS: Ondansetron PF 4 MG/2 ML Vial IVP PRN (12:14)
[2023-04-04] MEDS: Acetaminophen 650 MG/20.3 ML UDCUP PER TUBE SCH ×4 (04:18→21:46)
[2023-04-04] MEDS: fentaNYL 50 mcg/mL 1 mL Vial SLOW IVP PRN ×5 (04:19→17:35)
[2023-04-04] MEDS: Lorazepam 2 MG/ML VIAL SLOW IVP PRN ×6 (04:58→21:49)
[2023-04-04] MEDS: Ipratropium/Albuterol 3 ML NEB NEB SCH ×3 (07:24→18:19)
[2023-04-04] MEDS: Aripiprazole 10 MG TAB PER TUBE SCH (08:29)
[2023-04-04] MEDS: Fludrocortisone Acetate 0.1 MG TAB PO SCH (08:29)
[2023-04-04] MEDS: levETIRAcetam 500 MG/5 ML VIAL SLOW IVP SCH ×2 (08:29→21:48)
[2023-04-04] MEDS: Midodrine HCl 5 MG TAB PO SCH ×3 (08:29→21:48)
[2023-04-04] MEDS: Gabapentin 300 MG CAP PER TUBE SCH ×3 (08:30→21:47)
[2023-04-04] MEDS: Sertraline 25 MG TAB PER TUBE SCH (08:31)
[2023-04-04] MEDS: Famotidine 20 MG TAB PER TUBE SCH ×2 (08:31→21:47)
[2023-04-04] MEDS: Cyclobenzaprine 10 MG TAB PO PRN ×3 (08:58→21:49)
[2023-04-04 11:19] LABS: Hematocrit 26.4 % (42.0-52.0); Manual Diff?? YES; Mean Corpuscular HGB CONC 34.1 g/dL (32.0-36.0); Mean Corpuscular Hemoglobin 33.6 pg (27.0-31.0); Mean Corpuscular Volume 98.5 fl (78.0-98.0); Mean Platelet Volume 8.4 fL (7.4-10.4); Platelet Count 217 10x3/uL (130-400); Red Blood Cell (RBC) Count 2.68 mill/uL (4.70-6.10); White Blood Cell (WBC) Count 18.9 10x3/uL (4.8-10.8)
[2023-04-04 11:32] LABS: Delete Auto Diff?? YES
[2023-04-04 11:45] LABS: ALT (SGPT) 34 U/L (8-55); AST (SGOT) 23 U/L (5-34); Albumin 3.6 g/dL (3.5-5.0); Alkaline Phosphatase 126 U/L (40-110); Anion Gap 14 mmol/L (10-20); BUN (Urea Nitrogen) 12 mg/dL (8.9-20.6); Bilirubin, Total 0.5 mg/dL (0.2-1.2); Calc. Creatinine Clearance 114 mL/min (70-130); Calcium 9.8 mg/dL (7.8-10.44); Carbon Dioxide 23 mmol/L (22-29); Chloride 103 mmol/L (98-107); Estimated GFR 127; Globulin 3.7 g/dL (2.4-3.5); Glucose 112 mg/dL (70-105); Potassium 3.6 mmol/L (3.5-5.1); Protein, Total 7.3 g/dL (6.0-8.3); Sodium 136 mmol/L (136-145)
[2023-04-04 11:58] LABS: Anisocytosis SLIGHT = 6-15 cells HPF (0-5); Band 4 % (5-11); Burr Cells SLIGHT = 2-5 cells HPF (0-1); CellaVision Operator ID LAB.NR; Eosinophils 1 % (0-10); Lymphocytes 4 % (21-51); Macrocytosis SLIGHT = 6-15 cells HPF (0-5); Monocytes 5 % (0-10); Neutrophil 86 % (42-75); Platelet Adequacy Comment Platelets Normal; Polychromasia SLIGHT = 2-3 cells HPF (0-2); Smudge Cells 2.9 %; Total Cell Count 103
[2023-04-04] MEDS ORDERED: Sodium Chloride 0.9% 1,000 ML IV SCH (12:30)
[2023-04-05] MEDS: Acetaminophen 650 MG/20.3 ML UDCUP PER TUBE SCH ×4 (02:36→20:59)
[2023-04-05] MEDS: Lorazepam 2 MG/ML VIAL SLOW IVP PRN ×3 (02:37→17:39)
[2023-04-05 04:14] LABS: #Basophils 0.1 thou/uL (0.0-0.2); #Eosinphils 0.5 thou/uL (0.0-0.7); #Monocytes 1.1 thou/uL (0.11-0.59); %Basophils 0.5 % (0.0-1.0); %Eosinophils 3.5 % (0.0-10.0); %Lymphocytes 12.8 % (21.0-51.0); %Monocytes 8.3 % (0.0-10.0); %Neutrophils 74.5 % (42.0-75.0); Hematocrit 25.4 % (42.0-52.0); Hemoglobin 8.5 g/dL (14.0-18.0); Mean Corpuscular HGB CONC 33.5 g/dL (32.0-36.0); Mean Corpuscular Hemoglobin 32.9 pg (27.0-31.0); Mean Corpuscular Volume 98.4 fl (78.0-98.0); Mean Platelet Volume 8.9 fL (7.4-10.4); Platelet Count 222 10x3/uL (130-400); RBC Distribution Width 13.8 % (11.5-14.5); Red Blood Cell (RBC) Count 2.58 mill/uL (4.70-6.10); White Blood Cell (WBC) Count 13.4 10x3/uL (4.8-10.8)
[2023-04-05 04:46] LABS: Anion Gap 14 mmol/L (10-20); BUN (Urea Nitrogen) 12 mg/dL (8.9-20.6); Calc. Creatinine Clearance 123 mL/min (70-130); Calcium 9.8 mg/dL (7.8-10.44); Carbon Dioxide 22 mmol/L (22-29); Chloride 104 mmol/L (98-107); Estimated GFR 130; Glucose 120 mg/dL (70-105); Potassium 3.6 mmol/L (3.5-5.1); Sodium 136 mmol/L (136-145)
[2023-04-05] MEDS: Scopolamine 1 mg/72 hour Patch TD SCH (06:02)
[2023-04-05] MEDS: Ipratropium/Albuterol 3 ML NEB NEB SCH ×3 (07:13→19:00)
[2023-04-05] MEDS: Midodrine HCl 5 MG TAB PO SCH ×3 (07:40→21:01)
[2023-04-05] MEDS: Gabapentin 300 MG CAP PER TUBE SCH ×3 (07:40→21:00)
[2023-04-05] MEDS: Aripiprazole 10 MG TAB PER TUBE SCH (07:40)
[2023-04-05] MEDS: Famotidine 20 MG TAB PER TUBE SCH ×2 (07:40→21:01)
[2023-04-05] MEDS: levETIRAcetam 500 MG/5 ML VIAL SLOW IVP SCH ×2 (07:40→21:01)
[2023-04-05] MEDS: Fludrocortisone Acetate 0.1 MG TAB PO SCH (07:41)
[2023-04-05] MEDS: Sertraline 25 MG TAB PER TUBE SCH (07:41)
[2023-04-05] MEDS: fentaNYL 50 mcg/mL 1 mL Vial SLOW IVP PRN ×4 (10:51→22:24)
[2023-04-05] MEDS: Cyclobenzaprine 10 MG TAB PO PRN (22:26)
[2023-04-06] MEDS: Lorazepam 2 MG/ML VIAL SLOW IVP PRN ×2 (00:18→03:36)
[2023-04-06] MEDS: Acetaminophen 650 MG/20.3 ML UDCUP PER TUBE SCH ×4 (03:37→20:20)
[2023-04-06 06:13] LABS: Fungus Culture Final report (.)
[2023-04-06] MEDS: Ipratropium/Albuterol 3 ML NEB NEB SCH (07:28)
[2023-04-06] MEDS: Fludrocortisone Acetate 0.1 MG TAB PO SCH (07:42)
[2023-04-06] MEDS: Sertraline 25 MG TAB PER TUBE SCH (07:42)
[2023-04-06] MEDS: levETIRAcetam 500 MG/5 ML VIAL SLOW IVP SCH ×2 (07:42→20:20)
[2023-04-06] MEDS: Famotidine 20 MG TAB PER TUBE SCH ×2 (07:42→20:21)
[2023-04-06] MEDS: Gabapentin 300 MG CAP PER TUBE SCH ×3 (07:42→20:21)
[2023-04-06] MEDS: Aripiprazole 10 MG TAB PER TUBE SCH (07:42)
[2023-04-06] MEDS: Midodrine HCl 5 MG TAB PO SCH ×3 (07:43→20:21)
[2023-04-06] MEDS: fentaNYL 50 mcg/mL 1 mL Vial SLOW IVP PRN ×4 (10:45→19:04)
[2023-04-06] MEDS ORDERED: Ipratropium/Albuterol 3 ML NEB NEB PRN (11:23)
[2023-04-07] MEDS: Acetaminophen 650 MG/20.3 ML UDCUP PER TUBE SCH ×4 (03:38→20:49)
[2023-04-07] MEDS: Sertraline 25 MG TAB PER TUBE SCH (09:11)
[2023-04-07] MEDS: levETIRAcetam 500 MG/5 ML VIAL SLOW IVP SCH ×2 (09:11→20:51)
[2023-04-07] MEDS: Gabapentin 300 MG CAP PER TUBE SCH ×3 (09:12→20:50)
[2023-04-07] MEDS: Aripiprazole 10 MG TAB PER TUBE SCH (09:12)
[2023-04-07] MEDS: Famotidine 20 MG TAB PER TUBE SCH ×2 (09:12→20:50)
[2023-04-07] MEDS: Fludrocortisone Acetate 0.1 MG TAB PO SCH (09:12)
[2023-04-07] MEDS: Midodrine HCl 5 MG TAB PO SCH ×3 (09:13→20:51)
[2023-04-07] MEDS ORDERED: QUEtiapine 25 MG TAB PO SCH (11:00)
[2023-04-07] MEDS: QUEtiapine 25 MG TAB PO SCH (20:52)
[2023-04-07] MEDS: Melatonin 3 MG TAB PO PRN (20:52)
[2023-04-07] MEDS: Cyclobenzaprine 10 MG TAB PO PRN (20:52)
[2023-04-07] MEDS: Scopolamine 1 mg/72 hour Patch TD SCH (20:53)
[2023-04-08] MEDS: Acetaminophen 650 MG/20.3 ML UDCUP PER TUBE SCH ×4 (03:13→20:27)
[2023-04-08] MEDS: Midodrine HCl 5 MG TAB PO SCH ×3 (08:20→20:29)
[2023-04-08] MEDS: QUEtiapine 25 MG TAB PO SCH ×2 (08:20→20:29)
[2023-04-08] MEDS: Gabapentin 300 MG CAP PER TUBE SCH ×3 (08:20→20:28)
[2023-04-08] MEDS: Cyclobenzaprine 10 MG TAB PO PRN ×3 (08:20→20:30)
[2023-04-08] MEDS: Fludrocortisone Acetate 0.1 MG TAB PO SCH (08:20)
[2023-04-08] MEDS: Famotidine 20 MG TAB PER TUBE SCH ×2 (08:20→20:28)
[2023-04-08] MEDS: levETIRAcetam 500 MG/5 ML VIAL SLOW IVP SCH ×2 (08:20→20:29)
[2023-04-08] MEDS: Aripiprazole 10 MG TAB PER TUBE SCH (08:20)
[2023-04-08] MEDS: Sertraline 25 MG TAB PER TUBE SCH (08:20)
[2023-04-08] MEDS: Melatonin 3 MG TAB PO PRN (20:29)
[2023-04-09] MEDS: Acetaminophen 650 MG/20.3 ML UDCUP PER TUBE SCH ×4 (02:13→22:04)
[2023-04-09] MEDS: Cyclobenzaprine 10 MG TAB PO PRN ×2 (02:14→19:13)
[2023-04-09] MEDS: Morphine 2 MG/ML VIAL SLOW IVP PRN ×2 (03:17→23:56)
[2023-04-09] MEDS ORDERED: Sodium Bicarb 50 MEQ/50 ML VIAL ONE (07:43)
[2023-04-09] MEDS: Gabapentin 300 MG CAP PER TUBE SCH ×3 (08:56→22:04)
[2023-04-09] MEDS: levETIRAcetam 500 MG/5 ML VIAL SLOW IVP SCH ×2 (08:56→22:03)
[2023-04-09] MEDS: QUEtiapine 25 MG TAB PO SCH ×2 (08:56→19:14)
[2023-04-09] MEDS: Aripiprazole 10 MG TAB PER TUBE SCH (08:57)
[2023-04-09] MEDS: Fludrocortisone Acetate 0.1 MG TAB PO SCH (08:57)
[2023-04-09] MEDS: Midodrine HCl 5 MG TAB PO SCH ×3 (08:57→22:04)
[2023-04-09] MEDS: Famotidine 20 MG TAB PER TUBE SCH ×2 (08:57→22:04)
[2023-04-09] MEDS: Melatonin 3 MG TAB PO PRN (22:03)
[2023-04-10] MEDS: Acetaminophen 650 MG/20.3 ML UDCUP PER TUBE SCH ×4 (01:53→20:52)
[2023-04-10] MEDS: Morphine 2 MG/ML VIAL SLOW IVP PRN (06:46)
[2023-04-10] MEDS: levETIRAcetam 500 MG TAB PO SCH ×2 (09:42→20:51)
[2023-04-10] MEDS: Famotidine 20 MG TAB PER TUBE SCH ×2 (09:42→20:52)
[2023-04-10] MEDS: QUEtiapine 25 MG TAB PO SCH ×2 (09:42→20:50)
[2023-04-10] MEDS: Midodrine HCl 5 MG TAB PO SCH ×3 (09:42→20:52)
[2023-04-10] MEDS: Gabapentin 300 MG CAP PER TUBE SCH ×3 (09:42→20:51)
[2023-04-10] MEDS: Aripiprazole 10 MG TAB PER TUBE SCH (09:43)
[2023-04-10] MEDS: Fludrocortisone Acetate 0.1 MG TAB PO SCH (09:43)
[2023-04-10] MEDS: Melatonin 3 MG TAB PO PRN (20:52)
[2023-04-10] MEDS: Cyclobenzaprine 10 MG TAB PO PRN (20:53)
[2023-04-10] MEDS: Ondansetron PF 4 MG/2 ML Vial IVP PRN (20:53)
[2023-04-11] MEDS: Acetaminophen 650 MG/20.3 ML UDCUP PER TUBE SCH ×4 (02:40→20:58)
[2023-04-11] MEDS: Aripiprazole 10 MG TAB PER TUBE SCH (08:55)
[2023-04-11] MEDS: levETIRAcetam 500 MG TAB PO SCH ×2 (08:56→21:01)
[2023-04-11] MEDS: QUEtiapine 25 MG TAB PO SCH ×2 (08:56→21:01)
[2023-04-11] MEDS: Famotidine 20 MG TAB PER TUBE SCH ×2 (08:56→21:01)
[2023-04-11] MEDS: Midodrine HCl 5 MG TAB PO SCH ×3 (08:56→21:01)
[2023-04-11] MEDS: Cyclobenzaprine 10 MG TAB PO PRN ×2 (08:56→21:01)
[2023-04-11] MEDS: Fludrocortisone Acetate 0.1 MG TAB PO SCH (08:57)
[2023-04-11] MEDS: Gabapentin 300 MG CAP PER TUBE SCH ×3 (08:57→21:01)
[2023-04-11] MEDS: Melatonin 3 MG TAB PO PRN (21:01)
[2023-04-11] MEDS: Ondansetron PF 4 MG/2 ML Vial IVP PRN (21:02)
[2023-04-12] MEDS: Acetaminophen 650 MG/20.3 ML UDCUP PER TUBE SCH ×4 (03:55→21:20)
[2023-04-12] MEDS: Cyclobenzaprine 10 MG TAB PO PRN ×3 (09:29→21:23)
[2023-04-12] MEDS: Midodrine HCl 5 MG TAB PO SCH ×3 (09:29→21:23)
[2023-04-12] MEDS: Aripiprazole 10 MG TAB PER TUBE SCH (09:29)
[2023-04-12] MEDS: QUEtiapine 25 MG TAB PO SCH ×2 (09:29→21:23)
[2023-04-12] MEDS: Gabapentin 300 MG CAP PER TUBE SCH ×3 (09:29→21:23)
[2023-04-12] MEDS: Fludrocortisone Acetate 0.1 MG TAB PO SCH (09:29)
[2023-04-12] MEDS: levETIRAcetam 500 MG TAB PO SCH ×2 (09:29→21:23)
[2023-04-12] MEDS: Famotidine 20 MG TAB PER TUBE SCH ×2 (09:30→21:23)
[2023-04-12] MEDS: Ondansetron PF 4 MG/2 ML Vial IVP PRN (21:21)
[2023-04-12] MEDS: Melatonin 3 MG TAB PO PRN (21:23)
[2023-04-13] MEDS: Acetaminophen 650 MG/20.3 ML UDCUP PER TUBE SCH ×4 (03:38→20:17)
[2023-04-13] MEDS: Aripiprazole 10 MG TAB PER TUBE SCH (08:34)
[2023-04-13] MEDS: levETIRAcetam 500 MG TAB PO SCH ×2 (08:35→20:19)
[2023-04-13] MEDS: Cyclobenzaprine 10 MG TAB PO PRN ×2 (08:35→15:04)
[2023-04-13] MEDS: Famotidine 20 MG TAB PER TUBE SCH ×2 (08:35→20:19)
[2023-04-13] MEDS: Fludrocortisone Acetate 0.1 MG TAB PO SCH (08:35)
[2023-04-13] MEDS: QUEtiapine 25 MG TAB PO SCH ×2 (08:35→20:19)
[2023-04-13] MEDS: Gabapentin 300 MG CAP PER TUBE SCH ×3 (08:35→20:20)
[2023-04-13] MEDS: Midodrine HCl 5 MG TAB PO SCH ×3 (08:35→20:19)
[2023-04-13] MEDS ORDERED: Sterile Water 10 ML VIAL IVP SCH (10:45)
[2023-04-13] MEDS ORDERED: Activase 2 MG VIAL CATH SCH (10:45)
[2023-04-13] MEDS: Cyclobenzaprine 10 MG TAB PO SCH (20:20)
[2023-04-13] MEDS: Carbamide Peroxide 6.5% Otic Drops 15 ml Bottle EA EAR SCH (20:22)
[2023-04-13] MEDS: Morphine 2 MG/ML VIAL SLOW IVP PRN (22:31)
[2023-04-13] MEDS: Melatonin 3 MG TAB PO PRN (22:33)
[2023-04-14] MEDS: Acetaminophen 650 MG/20.3 ML UDCUP PER TUBE SCH ×4 (02:52→20:05)
[2023-04-14] MEDS: Morphine 2 MG/ML VIAL SLOW IVP PRN ×4 (02:56→20:11)
[2023-04-14] MEDS: Aripiprazole 10 MG TAB PER TUBE SCH (08:25)
[2023-04-14] MEDS: levETIRAcetam 500 MG TAB PO SCH ×2 (08:25→20:10)
[2023-04-14] MEDS: Fludrocortisone Acetate 0.1 MG TAB PO SCH (08:25)
[2023-04-14] MEDS: Gabapentin 300 MG CAP PER TUBE SCH ×3 (08:26→20:11)
[2023-04-14] MEDS: QUEtiapine 25 MG TAB PO SCH ×2 (08:27→20:10)
[2023-04-14] MEDS: Cyclobenzaprine 10 MG TAB PO SCH (08:27)
[2023-04-14] MEDS: Midodrine HCl 5 MG TAB PO SCH ×3 (08:27→20:10)
[2023-04-14] MEDS: Famotidine 20 MG TAB PER TUBE SCH ×2 (08:27→20:10)
[2023-04-14] MEDS: Carbamide Peroxide 6.5% Otic Drops 15 ml Bottle EA EAR SCH ×2 (08:54→22:01)
[2023-04-14 13:42] VITALS: BMI 15.3
[2023-04-14] MEDS: Cyclobenzaprine 10 MG TAB PO PRN ×2 (16:52→20:10)
[2023-04-14] MEDS: Melatonin 3 MG TAB PO PRN (21:54)
[2023-04-15] MEDS: Cyclobenzaprine 10 MG TAB PO PRN ×2 (02:54→10:55)
[2023-04-15] MEDS: Acetaminophen 650 MG/20.3 ML UDCUP PER TUBE SCH ×2 (02:54→08:50)
[2023-04-15] MEDS: Morphine 2 MG/ML VIAL SLOW IVP PRN ×2 (03:25→10:06)
[2023-04-15 05:06] LABS: Hematocrit 27.9 % (42.0-52.0); Hemoglobin 9.4 g/dL (14.0-18.0); Mean Corpuscular HGB CONC 33.7 g/dL (32.0-36.0); Mean Corpuscular Volume 97.9 fl (78.0-98.0); Mean Platelet Volume 8.8 fL (7.4-10.4); Platelet Count 314 10x3/uL (130-400); RBC Distribution Width 14.2 % (11.5-14.5); Red Blood Cell (RBC) Count 2.85 mill/uL (4.70-6.10); White Blood Cell (WBC) Count 14.5 10x3/uL (4.8-10.8)
[2023-04-15 08:22] LABS: Anion Gap 14 mmol/L (10-20); BUN (Urea Nitrogen) 15 mg/dL (8.9-20.6); Calc. Creatinine Clearance 112 mL/min (70-130); Calcium 9.7 mg/dL (7.8-10.44); Carbon Dioxide 25 mmol/L (22-29); Chloride 102 mmol/L (98-107); Estimated GFR 129; Glucose 81 mg/dL (70-105); Potassium 3.7 mmol/L (3.5-5.1); Sodium 137 mmol/L (136-145)
[2023-04-15] MEDS: Famotidine 20 MG TAB PER TUBE SCH (08:50)
[2023-04-15] MEDS: QUEtiapine 25 MG TAB PO SCH (08:50)
[2023-04-15] MEDS: Gabapentin 300 MG CAP PER TUBE SCH (08:50)
[2023-04-15] MEDS: Fludrocortisone Acetate 0.1 MG TAB PO SCH (08:50)
[2023-04-15] MEDS: Aripiprazole 10 MG TAB PER TUBE SCH (08:50)
[2023-04-15] MEDS: levETIRAcetam 500 MG TAB PO SCH (08:51)
[2023-04-15] MEDS: Midodrine HCl 5 MG TAB PO SCH (08:51)
[2023-04-15] MEDS: Carbamide Peroxide 6.5% Otic Drops 15 ml Bottle EA EAR SCH (09:01)
[2023-04-15 10:28] VITALS: BP 87/53
[2023-04-15 12:19] VITALS: TEMP 98.6
== END 2023-04-15 13:25 | DRG 3 ==
LOC: EEVIPCON 14:53 → ERS 14:53 → CCU 16:22
PROVIDERS: ADMIT Student in an Organized Health Care Education/Training Program; ATTEND Student in an Organized Health Care Education/Training Program
PROC: 0BH17EZ Insertion of Endotracheal Airway into Trachea, Via Natural or Artificial Opening (ICD-10-PCS; principal; 2023-03-04)
PROC: 5A1955Z Respiratory Ventilation, Greater than 96 Consecutive Hours (ICD-10-PCS; 2023-03-04)
PROC: 4A133R1 Monitoring of Arterial Saturation, Peripheral, Percutaneous Approach (ICD-10-PCS; 2023-03-04)
PROC: 3E033XZ Introduction of Vasopressor into Peripheral Vein, Percutaneous Approach (ICD-10-PCS; 2023-03-04)
PROC: 0BJ08ZZ Inspection of Tracheobronchial Tree, Via Natural or Artificial Opening Endoscopic (ICD-10-PCS; 2023-03-06)
PROC: 0B113F4 Bypass Trachea to Cutaneous with Tracheostomy Device, Percutaneous Approach (ICD-10-PCS; 2023-03-10)
PROC: 0DH63UZ Insertion of Feeding Device into Stomach, Percutaneous Approach (ICD-10-PCS; 2023-03-10)
PROC: 02HV33Z Insertion of Infusion Device into Superior Vena Cava, Percutaneous Approach (ICD-10-PCS; 2023-03-12)
PROC: B5181ZA Fluoroscopy of Superior Vena Cava using Low Osmolar Contrast, Guidance (ICD-10-PCS; 2023-03-12)
PROC: 02HK3NZ Insertion of Intracardiac Pacemaker into Right Ventricle, Percutaneous Approach (ICD-10-PCS; 2023-03-23)
DX: S12.101A Unspecified nondisplaced fracture of second cervical vertebra, initial encounter for closed fracture (principal); G93.41 Metabolic encephalopathy; J96.01 Acute respiratory failure with hypoxia; I46.9 Cardiac arrest, cause unspecified; J69.0 Pneumonitis due to inhalation of food and vomit; R53.2 Functional quadriplegia; S06.9XAA Unspecified intracranial injury with loss of consciousness status unknown, initial encounter; E87.20 Acidosis, unspecified; D62 Acute posthemorrhagic anemia; K56.7 Ileus, unspecified; Z99.11 Dependence on respirator [ventilator] status; Z88.8 Allergy status to other drugs, medicaments and biological substances; Z79.899 Other long term (current) drug therapy; Y04.0XXA Assault by unarmed brawl or fight, initial encounter; S12.110A Anterior displaced Type II dens fracture, initial encounter for closed fracture; G90.4 Autonomic dysreflexia; E83.42 Hypomagnesemia; D72.829 Elevated white blood cell count, unspecified; Z51.5 Encounter for palliative care; F41.9 Anxiety disorder, unspecified; J04.10 Acute tracheitis without obstruction; Z79.4 Long term (current) use of insulin
CPT/HCPCS: 31500; 31624; 33274; 36415; 36416; 36569; 36600; 51702; 70450; 70498; 71045; 71260; 71275; 72125; 72141; 74018; 74177; 80048; 80053; 80202; 80306; 80307; 81001; 82533; 82805; 83605; 83735; 84100; 84146; 84439; 84443; 84484; 85025; 85027; 85379; 85610; 85730; 86850; 86900; 86901; 87040; 87070; 87077; 87102; 87186; 87205; 87206; 93005; 93010; 93306; 94002; 94003; 94640; 95711; 95819; 96361; 96374; 96375; C1760; C1769; C1894; G0390; J0171; J0461; J0690; J1265; J1644; J1650; J1940; J1953; J2001; J2060; J2250; J2272; J2405; J2543; J2704; J2997; J3010; J3370-JW; J3475; J3480; J3490; J7050; J7620; Q9967; S0028